=== PATIENT | male | born 1990 | race Caucasian/White ===

== ENCOUNTER → 2016-09-18 | Outpatient (REF) | payer OTHER ==
[2016-09-18 16:43] LABS: BASO % 0.4 % (0.0-1.0); EOS # 0.2 K/mm3 (0.0-0.50); EOS % 4.3 % (0.0-3.0); LARGE UNSTAINED CELL # 0.1 K/mm3 (0.0-0.4); LARGE UNSTAINED CELL % 1.8 % (0.0-4.0); LYMPH % 40.1 % (24.0-44.0); MEAN CORPUSCULAR HEMOGLOBIN 33.2 pg (27.0-33.0); MEAN CORPUSCULAR HGB CONC 34.5 g/dl (32.0-36.5); MEAN CORPUSCULAR VOLUME 96.2 fl (80.0-96.0); MONO # 0.4 K/mm3 (0.0-0.8); MONO % 8.5 % (0.0-5.0); NEUTROPHILS # 2.2 K/mm3 (1.8-7.7); PLATELET COUNT, AUTOMATED 127 k/mm3 (150-450); WHITE BLOOD COUNT 4.9 K/mm3 (4.0-10.0)
[2016-09-18 17:46] LABS: ALBUMIN 4.3 GM/DL (3.2-5.2); ALBUMIN/GLOBULIN RATIO 1.23 (1.00-1.93); ALKALINE PHOSPHATASE 101 U/L (45-117); ALT/SGPT 111 U/L (12-78); ANION GAP 6 MEQ/L (8-16); AST/SGOT 37 U/L (15-37); BILIRUBIN,TOTAL 0.3 MG/DL (0.2-1.0); BLOOD UREA NITROGEN 14 MG/DL (7-18); CALCIUM LEVEL 9.7 MG/DL (8.5-10.1); CARBON DIOXIDE LEVEL 28 MEQ/L (21-32); CHLORIDE LEVEL 103 MEQ/L (98-107); CHOLESTEROL LEVEL 206 MG/DL (<200); CREATININE FOR GFR 1.12 MG/DL (0.70-1.30); FREE T4 1.09 NG/DL (0.76-1.46); GLOMERULAR FILTRATION RATE > 60.0 (>60); GLUCOSE, FASTING 94 MG/DL (70-105); POTASSIUM SERUM 4.3 MEQ/L (3.5-5.1); SODIUM LEVEL 137 MEQ/L (136-145); TOTAL PROTEIN 7.8 GM/DL (6.4-8.2); TRIGLYCERIDES LEVEL 162 MG/DL (<150)
[2016-09-18 18:07] LABS: ERYTHROCYTE SEDIMENTATION RATE 3 mm/hr (0-15)
== END ==
LOC: M SFHCPLAZ 13:20
PROVIDERS: ATTEND Family Medicine
DX: I10 Essential (primary) hypertension (principal); R79.89 Other specified abnormal findings of blood chemistry; M32.9 Systemic lupus erythematosus, unspecified; E78.5 Hyperlipidemia, unspecified

== ENCOUNTER → 2017-01-23 | Outpatient (REF) | payer OTHER ==
[2017-01-23 17:50] LABS: THYROID PEROXIDASE ANTIBODY < 28.0 U/ML (<60.0)
[2017-01-23 17:53] LABS: ALBUMIN 4.4 GM/DL (3.2-5.2); ALBUMIN/GLOBULIN RATIO 1.13 (1.00-1.93); ALKALINE PHOSPHATASE 110 U/L (45-117); ALT/SGPT 150 U/L (12-78); ANION GAP 10 MEQ/L (8-16); AST/SGOT 59 U/L (15-37); BILIRUBIN,TOTAL 0.5 MG/DL (0.2-1.0); BLOOD UREA NITROGEN 17 MG/DL (7-18); CALCIUM LEVEL 8.8 MG/DL (8.5-10.1); CARBON DIOXIDE LEVEL 24 MEQ/L (21-32); CHLORIDE LEVEL 108 MEQ/L (98-107); CHOLESTEROL LEVEL 218 MG/DL (<200); FREE T4 1.17 NG/DL (0.76-1.46); GLOMERULAR FILTRATION RATE > 60.0 (>60); GLUCOSE, FASTING 80 MG/DL (70-105); POTASSIUM SERUM 4.3 MEQ/L (3.5-5.1); SODIUM LEVEL 142 MEQ/L (136-145); TOTAL PROTEIN 8.3 GM/DL (6.4-8.2); TRIGLYCERIDES LEVEL 131 MG/DL (<150)
[2017-01-23 18:26] LABS: RED CELL DISTRIBUTION WIDTH 12.5 % (11.5-14.5); WHITE BLOOD COUNT 6.3 K/mm3 (4.0-10.0)
[2017-01-23 18:30] LABS: MEAN CORPUSCULAR HEMOGLOBIN 35.3 pg (27.0-33.0); MEAN CORPUSCULAR VOLUME 96.4 fl (80.0-96.0)
[2017-01-23 18:31] LABS: MEAN CORPUSCULAR HGB CONC 36.6 g/dl (32.0-36.5)
[2017-01-23 18:51] LABS: ERYTHROCYTE SEDIMENTATION RATE 5 mm/hr (0-15)
[2017-01-23 19:38] LABS: BANDS 4 % (< 11); EOSINOPHILS 2 % (0-5)
== END ==
LOC: M SFHCPLAZ 15:24
PROVIDERS: ATTEND Family Medicine
DX: D72.819 Decreased white blood cell count, unspecified (principal); I10 Essential (primary) hypertension; M32.9 Systemic lupus erythematosus, unspecified; E78.5 Hyperlipidemia, unspecified

== ENCOUNTER → 2017-01-29 | Outpatient (CLI) | payer OTHER ==
--- NOTE | 2017-01-29 08:54 | REP ---
RIGHT UPPER QUADRANT ULTRASOUND: Real-time sonographic evaluation of right upper quadrant performed. The gallbladder demonstrates no evidence of intraluminal sludge or calculi, wall thickening, or pericholecystic fluid. There is no intrahepatic or extrahepatic biliary dilatation, common bile duct measuring 4 mm in diameter. There is a small cyst in the right lobe of the liver 6 mm in diameter. Visualized pancreas is grossly unremarkable but not well seen due to overlying bowel gas. Right kidney demonstrates no hydronephrosis or nephrolithiasis with normal size at 10.6 cm in length. IMPRESSION: Essentially negative right upper quadrant ultrasound. Subcentimeter cyst in the right lobe of the liver. Signed by Donavan Cardoza MD 01/29/2017 09:04 A
== END ==
LOC: M RAD 07:20
PROVIDERS: ATTEND Family Medicine
DX: R05 Cough (principal)

== ENCOUNTER → 2017-02-19 | Outpatient (CLI) | payer OTHER ==
--- NOTE | 2017-02-19 10:43 | REP ---
Chest x-ray: Two views. History: Moderate persistent asthma. . Comparison study: January 01, 2015 . Findings: The lungs are well inflated and free of infiltrate. The pleural angles are sharp. The heart size is normal. Pulmonary vasculature is not increased. No significant bony abnormality is seen. Impression: Negative chest x-ray. Signed by Saurav Pelaez MD 02/19/2017 10:33 A
== END ==
LOC: M SMT 09:50
PROVIDERS: ATTEND Internal Medicine Pulmonary Disease
DX: J45.40 Moderate persistent asthma, uncomplicated (principal)

== ENCOUNTER → 2017-04-24 | Outpatient (REF) | payer OTHER ==
[2017-04-24 15:57] LABS: BASO % 0.4 % (0.0-1.0); EOS # 0.2 10^3/uL (0.0-0.50); EOS % 3.5 % (0.0-3.0); IMMATURE GRANULOCYTE % 0.2 % (0-0); LYMPH # 1.9 10^3/uL (1.5-6.5); LYMPH % 40.1 % (24.0-44.0); MEAN CORPUSCULAR HEMOGLOBIN 33.3 pg (27.0-33.0); MEAN CORPUSCULAR VOLUME 95.1 fl (80.0-96.0); MONO # 0.3 10^3/uL (0.0-0.8); MONO % 7.2 % (0.0-5.0); NEUTROPHILS # 2.2 10^3/uL (1.8-7.7); NEUTROPHILS % 48.6 % (36.0-66.0); PLATELET COUNT, AUTOMATED 142 10^3/uL (150-450); RED CELL DISTRIBUTION WIDTH 12.1 % (11.5-14.5); WHITE BLOOD COUNT 4.6 10^3/uL (4.0-10.0)
[2017-04-24 16:13] LABS: INR 1.03
[2017-04-24 16:14] LABS: ALBUMIN 4.2 GM/DL (3.2-5.2); ALKALINE PHOSPHATASE 86 U/L (45-117); ALT/SGPT 103 U/L (12-78); ANION GAP 7 MEQ/L (8-16); AST/SGOT 35 U/L (7-37); BILIRUBIN,TOTAL 0.4 MG/DL (0.2-1.0); BLOOD UREA NITROGEN 14 MG/DL (7-18); CALCIUM LEVEL 9.2 MG/DL (8.5-10.1); CARBON DIOXIDE LEVEL 28 MEQ/L (21-32); CHLORIDE LEVEL 103 MEQ/L (98-107); CHOLESTEROL LEVEL 197 MG/DL (<200); CREATININE FOR GFR 1.18 MG/DL (0.70-1.30); GLOMERULAR FILTRATION RATE > 60.0 (>60); GLUCOSE, FASTING 82 MG/DL (70-105); POTASSIUM SERUM 4.2 MEQ/L (3.5-5.1); SODIUM LEVEL 138 MEQ/L (136-145); TOTAL PROTEIN 7.7 GM/DL (6.4-8.2); TRIGLYCERIDES LEVEL 115 MG/DL (<150)
[2017-04-24 16:36] LABS: VITAMIN B12 LEVEL 591 PG/ML (247-911)
[2017-04-28 11:02] LABS: PRETREATED FOLATE FOR RBCFOL 9.9 NG/ML
[2017-04-28 13:47] LABS: ALBUMIN 4.56 GM/DL (3.29-5.55); ALBUMIN % 59.2 % (55.8-66.1); GAMMA GLOBULIN % 15.8 % (11.1-18.8)
== END ==
LOC: M SFHCPLAZ 12:49
PROVIDERS: ATTEND Family Medicine
DX: D75.89 Other specified diseases of blood and blood-forming organs (principal); E78.5 Hyperlipidemia, unspecified

== ENCOUNTER → 2017-12-22 | Outpatient (REF) | payer OTHER ==
[2017-12-22 15:41] LABS: BASO % 0.2 % (0.0-1.0); EOS % 0.2 % (0.0-3.0); HEMATOCRIT 43.9 % (42.0-52.0); HEMOGLOBIN 15.7 g/dl (13.5-17.5); IMMATURE GRANULOCYTE % 0.6 % (0-3.0); LYMPH # 1.3 10^3/uL (1.5-6.5); LYMPH % 25.9 % (24.0-44.0); MEAN CORPUSCULAR HEMOGLOBIN 33.7 pg (27.0-33.0); MEAN CORPUSCULAR HGB CONC 35.8 g/dl (32.0-36.5); MEAN CORPUSCULAR VOLUME 94.2 fl (80.0-96.0); MONO # 0.3 10^3/uL (0.0-0.8); MONO % 6.4 % (0.0-5.0); NEUTROPHILS # 3.4 10^3/uL (1.8-7.7); NEUTROPHILS % 66.7 % (36.0-66.0); PLATELET COUNT, AUTOMATED 140 10^3/uL (150-450); RED BLOOD COUNT 4.66 10^6/uL (4.30-6.10); RED CELL DISTRIBUTION WIDTH 12.6 % (11.5-14.5); WHITE BLOOD COUNT 5.1 10^3/uL (4.0-10.0)
[2017-12-22 15:52] LABS: ALBUMIN/GLOBULIN RATIO 1.14 (1.00-1.93); ALKALINE PHOSPHATASE 80 U/L (45-117); ALT/SGPT 40 U/L (12-78); ANION GAP 7 MEQ/L (8-16); AST/SGOT 14 U/L (7-37); BILIRUBIN,TOTAL 0.5 MG/DL (0.2-1.0); BLOOD UREA NITROGEN 13 MG/DL (7-18); C REACTIVE PROTEIN QUANTITATIV < 0.30 MG/DL (0.00-0.30); CALCIUM LEVEL 8.9 MG/DL (8.5-10.1); CARBON DIOXIDE LEVEL 24 MEQ/L (21-32); CHLORIDE LEVEL 110 MEQ/L (98-107); CHOLESTEROL LEVEL 170 MG/DL (<200); CHOLESTEROL RISK RATIO 3.953 (<5); CPK CREATINE PHOSPHOKINASE 55 U/L (39-308); CREATININE FOR GFR 0.88 MG/DL (0.70-1.30); GLOMERULAR FILTRATION RATE > 60.0 (>60); GLUCOSE, FASTING 80 MG/DL (70-100); HDL CHOLESTEROL 43 MG/DL (>40); LDL CHOLESTEROL 113.4 MG/DL (<100); NON-HDL-C 127 MG/DL; POTASSIUM SERUM 3.9 MEQ/L (3.5-5.1); SODIUM LEVEL 141 MEQ/L (136-145); TOTAL PROTEIN 7.5 GM/DL (6.4-8.2); TRIGLYCERIDES LEVEL 68 MG/DL (<150)
[2017-12-22 15:56] LABS: ESTIMATED AVERAGE GLUCOSE 105 MG/DL (60-110); HEMOGLOBIN A1c 5.3 %
[2017-12-22 15:58] LABS: ALPHA FETOPROTEIN TUMOR QUANT 1.5 NG/ML (<8.1); PTH INTACT 34.7 PG/ML (18.5-88.0); TOTAL 25(OH) VITAMIN D 30.2 NG/ML (30.0-100.0)
[2017-12-25 00:37] LABS: ANA (HEP2) Positive (.); SSA SJOGRENS A 0.2 AI (0.0-0.9); SSB SJOGRENS B <0.2 AI (0.0-0.9)
[2017-12-25 00:37] LABS: INSULIN LEVEL 14.2 uIU/mL (2.6-24.9)
== END ==
LOC: M SFHCPLAZ 12:26
DX: K70.9 Alcoholic liver disease, unspecified (principal); D75.89 Other specified diseases of blood and blood-forming organs; E78.5 Hyperlipidemia, unspecified; E55.9 Vitamin D deficiency, unspecified; M32.9 Systemic lupus erythematosus, unspecified; K21.9 Gastro-esophageal reflux disease without esophagitis

== ENCOUNTER → 2018-02-15 | Outpatient (REF) | payer OTHER ==
[2018-02-15 20:15] LABS: BASO % 0.4 % (0.0-1.0); EOS # 0.1 10^3/uL (0.0-0.50); EOS % 1.1 % (0.0-3.0); HEMATOCRIT 48.2 % (42.0-52.0); HEMOGLOBIN 17.5 g/dl (13.5-17.5); IMMATURE GRANULOCYTE % 0.2 % (0-3.0); LYMPH # 1.9 10^3/uL (1.5-6.5); LYMPH % 35.9 % (24.0-44.0); MEAN CORPUSCULAR HEMOGLOBIN 34.2 pg (27.0-33.0); MEAN CORPUSCULAR HGB CONC 36.3 g/dl (32.0-36.5); MEAN CORPUSCULAR VOLUME 94.3 fl (80.0-96.0); MONO # 0.6 10^3/uL (0.0-0.8); MONO % 10.8 % (0.0-5.0); NEUTROPHILS # 2.7 10^3/uL (1.8-7.7); NEUTROPHILS % 51.6 % (36.0-66.0); PLATELET COUNT, AUTOMATED 147 10^3/uL (150-450); RED BLOOD COUNT 5.11 10^6/uL (4.30-6.10); RED CELL DISTRIBUTION WIDTH 11.9 % (11.5-14.5); WHITE BLOOD COUNT 5.3 10^3/uL (4.0-10.0)
[2018-02-15 20:25] LABS: APPEARANCE, URINE CLOUDY (CLEAR); BACTERIA, URINE AUTO NEGATIVE (NEGATIVE); BILIRUBIN, URINE AUTO NEGATIVE (NEGATIVE); BLOOD, URINE BLOOD NEGATIVE (NEGATIVE); CALCIUM OXALATE CRYSTALS MODERATE; COLOR, URINE YELLOW (YELLOW); GLUCOSE, URINE (UA) AUTO NEGATIVE (NEGATIVE); KETONE, URINE AUTO NEGATIVE (NEGATIVE); LEUKOCYTE ESTERASE, URINE AUTO NEGATIVE (NEGATIVE); MUCUS, URINE LARGE (NEGATIVE); NITRITE, URINE AUTO NEGATIVE (NEGATIVE); PROTEIN, URINE AUTO NEGATIVE (NEGATIVE); RBC, URINE AUTO 31 /HPF (0-3); SPECIFIC GRAVITY URINE AUTO 1.021 (1.002-1.035); SQUAMOUS EPITHELIAL CELL UR AU 0 /HPF (0-6); UROBILINOGEN, URINE AUTO 0.2 mg/dL (0.0-2.0); WBC, URINE AUTO 1 /HPF (0-3)
[2018-02-15 23:31] LABS: ALBUMIN 4.3 GM/DL (3.2-5.2); ALKALINE PHOSPHATASE 99 U/L (45-117); ALT/SGPT 50 U/L (12-78); ANION GAP 9 MEQ/L (8-16); AST/SGOT 23 U/L (7-37); BILIRUBIN,TOTAL 0.5 MG/DL (0.2-1.0); BLOOD UREA NITROGEN 19 MG/DL (7-18); CALCIUM LEVEL 9.3 MG/DL (8.5-10.1); CARBON DIOXIDE LEVEL 25 MEQ/L (21-32); CHLORIDE LEVEL 103 MEQ/L (98-107); CREATININE FOR GFR 1.02 MG/DL (0.70-1.30); GLOMERULAR FILTRATION RATE > 60.0 (>60); GLUCOSE, FASTING 94 MG/DL (70-100); POTASSIUM SERUM 3.4 MEQ/L (3.5-5.1); SODIUM LEVEL 137 MEQ/L (136-145); TOTAL PROTEIN 7.8 GM/DL (6.4-8.2)
[2018-02-15 23:36] LABS: ALBUMIN/GLOBULIN RATIO 1.23 (1.00-1.93)
[2018-02-16 13:38] LABS: HEPATITIS B SURFACE ANTIBODY R (POSITIVE); HEPATITIS B SURFACE ANTIGEN NEGATIVE (NEGATIVE)
[2018-02-16 16:27] LABS: HEPATITIS C VIRUS ABY INDEX 0.2 INDEX (<0.8)
[2018-02-16 17:41] LABS: HEPATITIS B CORE ANTIBODY IGM NEGATIVE (NEGATIVE)
[2018-02-17 19:37] LABS: HIV 1&2 SCREEN CENTAUR NEGATIVE (NEGATIVE)
[2018-02-18 00:07] LABS: G6PD2 4.99 x10E6/uL (4.14-5.80); G6PD3 292 (146-376)
[2018-02-18 08:10] LABS: QUANTIFERON GOLD TB Negative (Negative); TB Test (QFT) Antigen 0.03 IU/mL (.); TB Test (QFT) Antigen Minus Ni <0.01 IU/mL (.); TB Test (QFT) Mitogen 8.08 IU/mL (.); TB Test (QFT) Nil 0.05 IU/mL (.)
== END ==
LOC: M SFHCLERA 18:13
DX: L93.0 Discoid lupus erythematosus (principal)
CPT/HCPCS: 80053

== ENCOUNTER → 2018-03-24 | Outpatient (REF) | payer OTHER ==
[2018-03-24 20:25] LABS: APPEARANCE, URINE HAZY (CLEAR); BACTERIA, URINE AUTO NEGATIVE (NEGATIVE); BILIRUBIN, URINE AUTO 1+ (NEGATIVE); BLOOD, URINE BLOOD NEGATIVE (NEGATIVE); CALCIUM OXALATE CRYSTALS MODERATE; COLOR, URINE AMBER (YELLOW); GLUCOSE, URINE (UA) AUTO NEGATIVE (NEGATIVE); KETONE, URINE AUTO TRACE mg/dL (NEGATIVE); LEUKOCYTE ESTERASE, URINE AUTO NEGATIVE (NEGATIVE); MUCUS, URINE SMALL (NEGATIVE); NITRITE, URINE AUTO NEGATIVE (NEGATIVE); PROTEIN, URINE AUTO 1+ mg/dL (NEGATIVE); RBC, URINE AUTO 1 /HPF (0-3); SPECIFIC GRAVITY URINE AUTO 1.027 (1.002-1.035); SQUAMOUS EPITHELIAL CELL UR AU 0 /HPF (0-6); WBC, URINE AUTO 0 /HPF (0-3)
== END ==
LOC: M SFHCLERA 17:38
DX: L93.0 Discoid lupus erythematosus (principal)
CPT/HCPCS: 81001

== ENCOUNTER → 2018-08-24 | Outpatient (CLI) | payer OTHER ==
--- NOTE | 2018-08-25 04:56 | REP ---
Clinical: Alcoholic liver disease. Comparison: 01/29/2017 Technique: Cardoza scale ultrasound using curved array transducer. Findings: The liver is echogenic consistent with fatty infiltration. No significant focal hepatic lesion identified. Incidental hepatic cyst measures 7 mm in the right lobe. The gallbladder is normal without gallstones, wall thickening or pericholecystic fluid. No biliary ductal dilatation is appreciated, and the common bile duct measures 3.7 mm diameter. The right kidney is normal in reniform shape without hydronephrosis and measures 11.0 x 5.6 x 4.5 cm with suggestions for partial duplication. No ascites. Visualized portions of the abdominal aorta normal. Impression: Hepatic steatosis. Subcentimeter hepatic cyst. Electronically Signed by Mat Colon MD 08/25/2018 04:48 A
== END ==
LOC: M RAD 08:01
PROVIDERS: ATTEND Family Medicine
DX: K70.9 Alcoholic liver disease, unspecified (principal)

== ENCOUNTER → 2019-01-08 | Outpatient (CLI) | payer OTHER ==
[2019-01-08 17:02] LABS: BLOOD UREA NITROGEN 13 MG/DL (7-18); CALCIUM LEVEL 9.1 MG/DL (8.5-10.1); CARBON DIOXIDE LEVEL 27 MEQ/L (21-32); CHLORIDE LEVEL 106 MEQ/L (98-107); GLOMERULAR FILTRATION RATE > 60.0 (>60); GLUCOSE, FASTING 99 MG/DL (70-100); POTASSIUM SERUM 4.3 MEQ/L (3.5-5.1); SODIUM LEVEL 139 MEQ/L (136-145)
[2019-01-08 17:09] LABS: BASO % 0.3 % (0.0-1.0); EOS # 0.2 10^3/uL (0.0-0.50); HEMOGLOBIN 18.1 g/dl (13.5-17.5); LYMPH # 1.4 10^3/uL (1.5-6.5); LYMPH % 20.5 % (24.0-44.0); MEAN CORPUSCULAR HEMOGLOBIN 33.2 pg (27.0-33.0); MEAN CORPUSCULAR HGB CONC 34.8 g/dl (32.0-36.5); MEAN CORPUSCULAR VOLUME 95.2 fl (80.0-96.0); MONO # 0.5 10^3/uL (0.0-0.8); MONO % 7.4 % (0.0-5.0); NEUTROPHILS # 4.7 10^3/uL (1.8-7.7); NEUTROPHILS % 68.7 % (36.0-66.0); PLATELET COUNT, AUTOMATED 138 10^3/uL (150-450); RED BLOOD COUNT 5.46 10^6/uL (4.30-6.10); WHITE BLOOD COUNT 6.8 10^3/uL (4.0-10.0)
[2019-01-08 20:06] LABS: CHLAMYDIA DNA AMPLIFICATION NEGATIVE (NEGATIVE); GC DNA AMPLIFICATION NEGATIVE (NEGATIVE)
[2019-01-10 12:04] LABS: HEPATITIS C VIRUS ABY INDEX 0.1 INDEX (<0.8)
[2019-01-10 12:05] LABS: HIV 1&2 SCREEN CENTAUR NEGATIVE (NEGATIVE)
== END ==
LOC: M WUC 13:21
PROVIDERS: ATTEND Nurse Practitioner Family
DX: N50.812 Left testicular pain (principal); Z11.3 Encounter for screening for infections with a predominantly sexual mode of transmission

== ENCOUNTER → 2019-01-14 | Outpatient (REF) | payer OTHER ==
[2019-01-14 13:00] LABS: INR 1.05; PROTHROMBIN TIME 13.4 SECONDS (11.8-14.0)
[2019-01-14 13:01] LABS: ALBUMIN 4.5 GM/DL (3.2-5.2); ALT/SGPT 32 U/L (12-78); BILIRUBIN,TOTAL 0.5 MG/DL (0.2-1.0); BLOOD UREA NITROGEN 14 MG/DL (7-18); CALCIUM LEVEL 9.4 MG/DL (8.5-10.1); CARBON DIOXIDE LEVEL 28 MEQ/L (21-32); CHLORIDE LEVEL 107 MEQ/L (98-107); CHOLESTEROL LEVEL 180 MG/DL (<200); COMPLEMENT C3 110 MG/DL (90-180); COMPLEMENT C4 28 MG/DL (10-40); CREATININE FOR GFR 1.15 MG/DL (0.70-1.30); FREE T4 1.16 NG/DL (0.76-1.46); GLOMERULAR FILTRATION RATE > 60.0 (>60); GLUCOSE, FASTING 96 MG/DL (70-100); HDL CHOLESTEROL 36 MG/DL (>40); LDL CHOLESTEROL 125 MG/DL (<100); MAGNESIUM LEVEL 2.2 MG/DL (1.8-2.4); NON-HDL-C 144 MG/DL; PARTIAL THROMBOPLASTIN TIME 35.4 SECONDS (25.0-38.4); POTASSIUM SERUM 4.2 MEQ/L (3.5-5.1); SODIUM LEVEL 139 MEQ/L (136-145); TOTAL PROTEIN 7.7 GM/DL (6.4-8.2); TRIGLYCERIDES LEVEL 97 MG/DL (<150)
[2019-01-14 13:19] LABS: TOTAL 25(OH) VITAMIN D 27.9 NG/ML (30.0-100.0); TOTAL PROTEIN,RANDOM URINE 103.8 MG/DL (0.0-12.0)
[2019-01-18 10:12] LABS: DRVV SCREEN 49.7 SEC
[2019-01-18 10:15] LABS: PTT LUPUS TYPE ANTICOAG SCREEN 1.2 (0-1.2)
[2019-01-18 10:23] LABS: DRVV CONFIRM 42.8 SEC; LUPUS CONFIRM RATIO 1.1
[2019-01-18 10:35] LABS: NORMALIZED RATIO 1.09 (0.00-1.20)
[2019-01-20 00:08] LABS: ANTI DS-DNA AB <1:10 titer (.); ANTINUCLEAR ANTIBODIES DIRECT Negative (Negative); INSULIN LEVEL 9.3 uIU/mL (2.6-24.9)
== END ==
LOC: M SFHCPLAZ 09:34
PROVIDERS: ATTEND Physician Assistant Medical
DX: M32.9 Systemic lupus erythematosus, unspecified (principal); I10 Essential (primary) hypertension; E78.5 Hyperlipidemia, unspecified; E66.9 Obesity, unspecified; E55.9 Vitamin D deficiency, unspecified

== ENCOUNTER → 2019-05-12 | Outpatient (CLI) | payer OTHER ==
--- NOTE | 2019-05-12 14:41 | REPPI ---
Clinical: Constipation. Technique: Two supine views of the abdomen and pelvis. Findings: Bowel gas pattern is nonspecific. No organomegaly. No abnormal calcifications. No foreign body. Skeletal structures intact. Impression: Normal abdominal radiographs Electronically Signed by Mat Colon MD 05/12/2019 02:33 P
[2019-05-12 17:26] LABS: BASO % 0.2 % (0.0-1.0); HEMATOCRIT 51.4 % (42.0-52.0); HEMOGLOBIN 17.3 g/dl (13.5-17.5); LYMPH # 1.6 10^3/uL (1.5-5.0); LYMPH % 40.2 % (24.0-44.0); MEAN CORPUSCULAR HEMOGLOBIN 32.2 pg (27.0-33.0); MEAN CORPUSCULAR HGB CONC 33.7 g/dl (32.0-36.5); MEAN CORPUSCULAR VOLUME 95.7 fl (80.0-96.0); MONO # 0.5 10^3/uL (0.0-0.8); MONO % 11.4 % (0.0-5.0); NEUTROPHILS # 1.9 10^3/uL (1.5-8.5); PLATELET COUNT, AUTOMATED 149 10^3/uL (150-450); RED BLOOD COUNT 5.37 10^6/uL (4.30-6.10); WHITE BLOOD COUNT 4.1 10^3/uL (4.0-10.0)
[2019-05-12 17:36] LABS: ALBUMIN 4.7 GM/DL (3.2-5.2); ALT/SGPT 31 U/L (12-78); BILIRUBIN,TOTAL 0.5 MG/DL (0.2-1.0); BLOOD UREA NITROGEN 11 MG/DL (7-18); C REACTIVE PROTEIN QUANTITATIV < 0.30 MG/DL (0.00-0.30); CALCIUM LEVEL 9.8 MG/DL (8.5-10.1); CARBON DIOXIDE LEVEL 31 MEQ/L (21-32); CHLORIDE LEVEL 104 MEQ/L (98-107); COMPLEMENT C3 131 MG/DL (90-180); COMPLEMENT C4 31 MG/DL (10-40); CREATININE FOR GFR 1.07 MG/DL (0.70-1.30); GLOMERULAR FILTRATION RATE > 60.0 (>60); GLUCOSE, FASTING 92 MG/DL (70-100); SODIUM LEVEL 137 MEQ/L (136-145); TOTAL PROTEIN 8.4 GM/DL (6.4-8.2)
[2019-05-12 17:50] LABS: TOTAL PROTEIN,RANDOM URINE 18.9 MG/DL (0.0-12.0)
[2019-05-12 18:07] LABS: HEMOGLOBIN A1c 5.6 %
[2019-05-13 15:32] LABS: APPEARANCE, URINE HAZY (CLEAR); BACTERIA, URINE AUTO NEGATIVE (NEGATIVE); BILIRUBIN, URINE AUTO NEGATIVE (NEGATIVE); BLOOD, URINE BLOOD 1+ (NEGATIVE); COLOR, URINE YELLOW (YELLOW); GLUCOSE, URINE (UA) AUTO NEGATIVE (NEGATIVE); KETONE, URINE AUTO NEGATIVE (NEGATIVE); LEUKOCYTE ESTERASE, URINE AUTO NEGATIVE (NEGATIVE); MUCUS, URINE SMALL (NEGATIVE); NITRITE, URINE AUTO NEGATIVE (NEGATIVE); PROTEIN, URINE AUTO NEGATIVE (NEGATIVE); RBC, URINE AUTO 0 /HPF (0-3); SPECIFIC GRAVITY URINE AUTO 1.011 (1.002-1.035); SQUAMOUS EPITHELIAL CELL UR AU 0 /HPF (0-6); UROBILINOGEN, URINE AUTO 0.2 mg/dL (0.0-2.0); WBC, URINE AUTO 0 /HPF (0-3)
== END ==
LOC: M PLAIMG 13:37
PROVIDERS: ATTEND Family Medicine
DX: M32.9 Systemic lupus erythematosus, unspecified (principal); K59.00 Constipation, unspecified

== ENCOUNTER 2019-06-10 04:01 | Inpatient (IN) | payer OTHER ==
[~2019-06-10] VITALS: Ht 175.3 cm; Wt 89.6 kg
[2019-06-10] MEDS ORDERED: CHLO25TA PO (05:53)
[2019-06-10] MEDS ORDERED: PROT0.1O EXT (05:53)
[2019-06-10] MEDS ORDERED: ASPI81TA21 PO (05:53)
[2019-06-10] MEDS ORDERED: ADV500INH INH (05:53)
[2019-06-10] MEDS ORDERED: HYDR200T3 PO (05:53)
[2019-06-10] MEDS ORDERED: KETO2SHA9 TOP (05:53)
[2019-06-10] MEDS ORDERED: VENTAER INH (05:53)
[2019-06-10] MEDS ORDERED: FLUOCRE EXT (05:53)
[2019-06-10] MEDS ORDERED: ZETI10TA16 PO (05:53)
[2019-06-10] MEDS ORDERED: BACITAB PO (05:53)
[2019-06-10] MEDS ORDERED: HYDR-3363 PO (05:53)
[2019-06-10] MEDS ORDERED: MAALOX 30 ML SUSP *UDC PO PRN (12:30)
[2019-06-10] MEDS ORDERED: MOM 30ML SUSPENSION UDC PO PRN (12:30)
[2019-06-10] MEDS ORDERED: ACETAMINOPHEN TAB 650MG DOSE (2X325MG) PO PRN (12:30)
[2019-06-10] MEDS ORDERED: hydrOXYzine 25 MG TAB PO PRN (17:00)
[2019-06-10] MEDS: NICOTINE 21MG/24HR 1 EA TRANSDERMAL TD SCH (17:03)
[2019-06-10] MEDS: OLANZapine ORAL DISINTEGRATING TAB 5MG PO PRN (17:14)
[2019-06-10 18:00] VITALS: BP 139/92
[2019-06-11 06:39] VITALS: BP 137/90
[2019-06-11] MEDS: OLANZapine ORAL DISINTEGRATING TAB 5MG PO PRN ×2 (08:28→15:19)
[2019-06-11] MEDS: NICOTINE 21MG/24HR 1 EA TRANSDERMAL TD SCH (08:28)
[2019-06-11 15:51] VITALS: BP 139/96
[2019-06-11] MEDS: clonazePAM 0.5 MG TAB PO SCH ×2 (17:21→20:46)
[2019-06-11] MEDS: traZODone 50 MG TAB PO PRN (20:11)
[2019-06-11] MEDS: SERTRALINE 100 MG TAB PO SCH (20:11)
[2019-06-11] MEDS: OLANZapine ORAL DISINTEGRATING TAB 5MG PO SCH (20:46)
--- NOTE | 2019-06-11 22:21 | MHHPE ---
DATE OF ADMISSION: 06/10/2019 HISTORY OF PRESENT ILLNESS: This is a 29-year-old white man who is hospitalized for the first time. He came to the hospital from [facility] [place], as he had voiced suicidal ideations. This patient states that over the past few years, he has increasingly become more and more fearful that something terrible is going to happen to him. He is particularly afraid of . He states that, for example, if he has the flu, he starts thinking the worse. If he has constipation, he thinks he has colon cancer. If he sees something online stating that this is the beginning of possible lung cancer, then he starts worrying that he might have cancer. He states that more and more he has isolated and the only place where he feels safe is in his own bedroom, and only if it is just his family, his parents and his fiance, that are in the house. He states that he is afraid that he is going to do something impulsive to kill himself. He says that there are moments that he gets so afraid, and he goes into a panic episode. He says that recently he is so afraid of taking a shower, because he had a panic attack while he was showering once. He states, "I could be fine one minute and then my brain triggers anxiety, and I get a cold sensation in my back, my stomach hurts," and then he goes into a panic with palpitations and shortness of breath. He says that before this started, he used to like to go to a lot of places and do a lot of things, so this has not always been a problem for him. His primary care provider has been treating him with Zoloft 50 mg once a day for the past year. It has not really been too effective. Patient is also feeling very depressed, feeling hopeless and helpless. The patient states that his fears are now getting to the point where he is beginning to feel that he cannot trust any doctors. The patient states that lately he has developed nausea almost every day, and so he is having more and more problems with eating. He says when he has a panic attack, he will have dry heaves. He says he has been losing weight. The patient has never had any prior psychiatric treatment since he started to have problems with these fears about his health. He did have some very brief treatment as a child back in 2006, and I did review a note from Dr. Liu, a child psychiatrist, at [facility], but mostly it says that he was having a lot of anxiety at the time due to a lot of problems that he was having in school. It mentions that he had attention deficit hyperactivity disorder and apparently had a trial of Ritalin, but apparently he had side effects from it, and so it appears that Dr. Liu did not prescribe any medication for him, even though he had diagnosis of attention deficit hyperactivity disorder (ADHD). PAST PSYCHIATRIC HISTORY: The patient has never made any suicidal attempts, and this is his first hospitalization. FAMILY HISTORY: He says that everyone in his family has a lot of problems with depression and anxiety. ABUSE HISTORY: Denies any history of any physical or sexual abuse. SUBSTANCE ABUSE HISTORY: He denies any problems with alcohol or drugs. He does say that recently he had tried some pot to see if it helped him to relax, and with his lupus he says that the more anxious that he is, the worse his lupus gets. There is no history of any problems with alcohol or drugs. MEDICAL HISTORY: The patient has gastroesophageal reflux disease (GERD). REVIEW OF SYSTEMS: VITAL SIGNS: Blood pressure 137/90, pulse 83, respirations 18. APPEARANCE: Hs is extremely anxious. NEUROMUSCULAR SYSTEM: The patient's gait is normal, and there are no involuntary movements noted. All other systems were reviewed and found to be negative. MENTAL STATUS EXAMINATION: This patient is alert and oriented times three. Eye contact is fair. Psychomotor activity is increased due to anxiety. He is verbally spontaneous. There is no formal thought disorder noted. His mood is anxious and depressed. His affect is full range and appropriate. He is not suicidal or homicidal today. He admits that he has been afraid that he would act on suicidal thoughts that he has had prior to admission if he goes into a panic attack. The patient is not having any hallucinations. There are no actual delusions; however, it is possible that some of his thoughts or fears about being ill or getting ill or somebody hurting him, that these may be close to becoming some paranoid delusions. Concentration is fair. Memory is intact. Insight and judgment poor. DIAGNOSES: 1. Major depressive disorder, recurrent, severe without psychotic symptoms. 2. Generalized anxiety disorder. 3. Panic disorder. 4. Rule out Illness anxiety disorder. PLAN: At this point, patient has expressed some anxiety and fears that he has or will become seriously ill. The patient is already on Zoloft, but I will increase the dose to 100 mg at bedtime. I will start him on Klonopin 0.5 mg twice a day. He has taken Zyprexa 5 mg as needed that I had ordered for him, and he feels that has really been helping his anxiety, and so we will schedule it so he can take 5 mg at bedtime. He feels that this helps him settle down. We will further titrate medication as indicated, and when stable we will discharge with appropriate followup. RENETTA
[2019-06-12 06:37] VITALS: BP 140/94
[2019-06-12] MEDS: clonazePAM 0.5 MG TAB PO SCH ×3 (08:44→20:37)
[2019-06-12] MEDS: NICOTINE 21MG/24HR 1 EA TRANSDERMAL TD SCH (08:44)
--- NOTE | 2019-06-12 12:19 | CR.PDOC ---
General Date of Consultation: Jun 12, 2019 Consultation REASON FOR CONSULTATION/CHIEF COMPLAINT: Physical evaluation HISTORY OF PRESENT ILLNESS: Patient is 29 years old male with past medical history of lupus, hypertension, anxiety presented to the hospital after he developed suicidal ideation. Patient denied fever, chills, chest pain, palpitations nausea, vomiting, diarrhea or dysuria ALLERGIES: Please see below. HOME MEDICATIONS: Please see below. PAST MEDICAL HISTORY: Lupus, hypertension, hyperlipidemia PAST SURGICAL HISTORY: None FAMILY HISTORY: Father: Depression Mother: Anxiety, depression, hypertension, stroke Ant: Lupus SOCIAL HISTORY: Tobacco use: One pack a day ETOH: Denied Illicit drug use: Denied Review of system 10 point review system negative except listed above PHYSICAL EXAMINATION: VITAL SIGNS: Please see below. Objective:VITAL SIGNS: Please see below. GENERAL APPEARANCE: Well-nourished, well-developed HEENT: Normocephalic, atraumatic. Mucous members moist and pink CARDIOVASCULAR: Regular rate and rhythm. No murmurs, rubs or gallops. Radial pulses are intact. There is no lower extremity edema LUNGS: Diminished lung sounds, ABDOMEN: Abdomen is soft and nontender. MUSCULOSKELETAL: Range of motion is intact in all 4 extremities NEUROLOGICAL: Cranial nerves II-12 are grossly intact. Speech is not dysarthric LABORATORY DATA: Please see below. ASSESSMENT/PLAN: Patient is 29 years old male with past medical history of lupus, hypertension, anxiety presented to the hospital after he developed suicidal ideation. Patient denied fever, chills, chest pain, palpitations nausea, vomiting, diarrhea or dysuria Hypertension Continue chlorthalidone 25 mg daily Lupus Continue his home meds Hyperlipidemia Will check lipid profile Continue home meds Vital Signs/I&O Vital Signs Date Time Temp Pulse Resp B/P (MAP) Pulse Ox O2 Delivery O2 Flow Rate FiO2 06/12/19 06:37 97.8 110 16 140/94 (109) 06/10/19 14:50 100 Room Air Allergies Coded Allergies: No Known Allergies (Unverified , 06/10/19) Home Medications Scheduled Aspirin (Aspir-Low) 81 Mg Tablet.dr, 81 MG PO DAILY, (Reported) Chlorthalidone (Chlorthalidone) 25 Mg Tablet, 25 MG PO DAILY, (Reported) Ezetimibe (Zetia) 10 Mg Tablet, 10 MG PO DAILY, (Reported) Fluocinonide/Emollient Base (Fluocinonide-E 0.05% Cream) 15 Gm Cream..g., 1 DOSE EXT DAILY, (Reported) Hydroxychloroquine Sulfate (Hydroxychloroquine Sulfate) 200 Mg Tablet, 200 MG PO BID, (Reported) Ketoconazole (Ketoconazole) 120 Ml Shampoo, 1 DOSE TOP 3XW, (Reported) THURSDAY, THURSDAY AND THURSDAY L.acidoph/L.bulg/B.bif/S.therm (Bacid Caplet) 1 Each Tablet, 1 TAB PO BID, (Reported) Salmeterol/Fluticasone (Advair 500-50 Diskus) 1 Each Blst.w.dev, 1 PUFF INH BID, (Reported) Tacrolimus (Protopic) 100 Gm Oint...g., 1 DOSE EXT BID, (Reported) Scheduled PRN Albuterol Sulfate (Ventolin Hfa) 18 Gm Hfa.aer.ad, 2 PUFF INH Q4H PRN for SHORTNESS OF BREATH, (Reported) Hydroxyzine HCl (Hydroxyzine HCl) 25 Mg Tablet, 25 MG PO QID PRN for ANXIETY, (Reported) RODNEY DALTON DO Jun 12, 2019 12:19
[2019-06-12 13:43] LABS: CHOLESTEROL RISK RATIO 3.517 (<5)
[2019-06-12] MEDS: CHLORTHALIDONE 25 MG TAB PO SCH (14:05)
[2019-06-12 15:43] VITALS: BP 128/80
--- NOTE | 2019-06-12 19:56 | MHIPN ---
DATE: 06/12/2019 The patient today states that he slept all night. He says the Klonopin helped with anxiety but his fears are still very overwhelming for him. He is denying suicidal ideations. MENTAL STATUS EXAMINATION: He is alert and oriented times three. He is verbally spontaneous. Eye contact is fair. Psychomotor activity is increased due to anxiety. There is no formal thought disorder noted. Mood is anxious. Affect is full range and appropriate. He is not psychotic, suicidal or homicidal. Concentration and memory are good. Insight and judgment fair. 1.DIAGNOSES: 1. Major depressive disorder, recurrent, severe without psychotic symptoms. 2. Generalized anxiety disorder. 3. Panic disorder. 4. Rule out Illness anxiety disorder. TREATMENT PLAN: At this point we will continue to monitor the patient and titrate his medications as indicated. We will monitor him for continued resolution of suicidal ideations. RENETTA
[2019-06-12] MEDS: traZODone 50 MG TAB PO PRN (20:37)
[2019-06-12] MEDS: OLANZapine ORAL DISINTEGRATING TAB 5MG PO SCH (20:37)
[2019-06-12] MEDS: SERTRALINE 100 MG TAB PO SCH (20:37)
[2019-06-13 06:18] VITALS: BP 144/82
[2019-06-13] MEDS: NICOTINE 21MG/24HR 1 EA TRANSDERMAL TD SCH (09:05)
[2019-06-13] MEDS: clonazePAM 0.5 MG TAB PO SCH ×3 (09:06→20:29)
[2019-06-13] MEDS: CHLORTHALIDONE 25 MG TAB PO SCH (09:06)
--- NOTE | 2019-06-13 09:32 | MHIPNPDOC ---
[facility] Progress Note Progress Note DATE OF SERVICE: 06/13/19 HISTORY: As per ED- This is a 29-year-old white man who is hospitalized for the first time. He came to the hospital from [facility], as he had voiced suicidal ideations. This patient states that over the past few years, he has increasingly become more and more fearful that something terrible is going to happen to him. He is particularly afraid of . He states that, for example, if he has the flu, he starts thinking the worse. He states that more and more he has isolated and the only place where he feels safe is in his own bedroom, and only if it is just his family, his parents and his fiance, that are in the house. He states that he is afraid that he is going to do something impulsive to kill himself. He says that there are moments that he gets so afraid, and he goes into a panic episode. He says that recently he is so afraid of taking a shower, because he had a panic attack while he was showering once. He states, "I could be fine one minute and then my brain triggers anxiety, and I get a cold sensation in my back, my stomach hurts," and then he goes into a panic with palpitations and shortness of breath. He says that before this started, he used to like to go to a lot of places and do a lot of things, so this has not always been a problem for him. His primary care provider has been treating him with Zoloft 50 mg once a day for the past year. It has not really been too effective. Patient is also feeling v yenni depressed, feeling hopeless and helpless. The patient states that his fears are now getting to the point where he is beginning to feel that he cannot trust any doctors. The patient has never had any prior psychiatric treatment since he started to have problems with these fears about his health. He did have some very brief treatment as a child back in 2006, and I did review a note from Dr. Liu, a child psychiatrist, at [facility], but mostly it says that he was having a lot of anxiety at the time due to a lot of problems that he was having in school. It mentions that he had attention deficit hyperactivity disorder and apparently had a trial of Ritalin, but apparently he had side effects from it, and so it appears that Dr. Liu did not prescribe any medication for him, even though he had diagnosis of attention deficit hyperactivity disorder (ADHD).. VITAL SIGNS: See below. NEW TEST RESULTS: See below. CURRENT MEDICATIONS: See below. MENTAL STATUS EXAMINATION: Anxious and preoccupied with thoughts of illness Patient is a 29-year old male, who is his own clothes, clean, with excoriations on his face. Speech: Is clear, normal volume, regular rate and rhythm. Language skills are intact. Thought processes including: concrete. Thought content: preoccupied with Lupus diagnosis and "there are germs everywhere that could kill me." Denies SI, HI, AVH. Abstract reasoning, and computation: intact. Description of associations: denies Description of abnormal or psychotic thoughts: denies. Judgment: poor. Insight: poor. Orientation: AAOx3. Recent and remote memory: intact. Attention span and concentration: intact. Language: intact. Fund of knowledge: intact. Mood: "anxious about being here". Affect: incredibly anxious and paranoid of germs. DIAGNOSES: 1. Major depressive disorder, recurrent, severe without psychotic symptoms. 2. Generalized anxiety disorder. 3. Panic disorder. 4. Rule out Illness anxiety disorder. ASSESSMENT: Pt seen and states he "anxious about being here and wants to go home." States he was able to sleep last night with the help of the Klonopin but he is still anxious about being in [facility] and does not like the fact he has a roommate. He is preoccupied with his Lupus diagnosis and believes that "people are disgusting... the germs that people have from not wiping could kill me." Pt is adamant that he should go home and that being in [facility] is "not helping his anxiety, in fact it is making it worse." He is encouraged to attend groups- he had gone over the weekend but left because he started feeling anxious seeing people coughing and sneezing. He denies insomnia, SI/HI, hallucinations, delusions. Despite pts doubts, staff has noticed an improvement with his anxiety and his behaviors to cope his anxiety- he was able to have 2 BMs over the weekend, he was able to shower, and the excoriations on his face have improved. Recommended to continue treatment in [facility] as improvements have been seen. Pt feels safe here. MANAGEMENT PLAN: Zoloft 100 mg qhs. Klonopin 0.5 mg BID. Atarax 25 mg prn. Agree with student note. Dr. Kayli Diamond TIME SPENT: 30 minutes. Vital Signs Vital Signs Date Time Temp Pulse Resp B/P (MAP) Pulse Ox O2 Delivery O2 Flow Rate FiO2 06/13/19 06:18 97.7 88 18 144/82 (102) 06/10/19 14:50 100 Room Air Laboratory Data 24H Labs Laboratory Tests 2 06/12/19 12:57: Triglycerides Level 81, Total Cholesterol 102, LDL Cholesterol 57, Non-HDL Cholesterol (LDL + VLDL) 73, Total HDL Cholesterol 29L, Cholesterol/HDL Ratio 3.517 Current Medications Current Medications Medications (Trade) Dose Ordered Sig/Jazlyn Route PRN Reason Start Time Stop Time Status Last Admin Dose Admin Acetaminophen (Tylenol Tab) 650 mg Q6HP PRN PO HEADACHE or DISCOMFORT 06/10/19 12:30 Al Hydrox/Mg Hydrox/Simethicone (Mylanta) 30 ml Q4HP PRN PO HEARTBURN/INDIGESTION 06/10/19 12:30 Chlorthalidone (Hygroton) 25 mg DAILY PO 06/12/19 14:00 06/13/19 09:06 Clonazepam (KlonoPIN) 0.5 mg TID PO 06/11/19 16:00 06/13/19 09:06 Home Med (Med Rec Complete!) ASDIRECTED XX 06/10/19 06:00 06/10/19 05:55 DC Hydroxyzine HCl (Atarax) 25 mg QID PRN PO ANXIETY 06/10/19 17:00 Magnesium Hydroxide (Milk Of Magnesia) 30 ml DAILYPRN PRN PO CONSTIPATION 06/10/19 12:30 Nicotine (Nicoderm Cq 21mg) 1 patch DAILY TD 06/10/19 09:00 06/13/19 09:05 Olanzapine (ZyPREXA ZYDIS) 5 mg Q4HP PRN PO ANXIETY/AGITATION 06/10/19 17:00 06/11/19 15:19 Olanzapine (ZyPREXA ZYDIS) 5 mg QHS PO 06/11/19 21:00 06/12/19 20:37 Sertraline HCl (Zoloft) 100 mg QHS PO 06/11/19 21:00 06/12/19 20:37 Trazodone HCl (Desyrel) 50 mg QHSP PRN PO INSOMNIA 06/10/19 12:30 06/12/19 20:37 Allergies Coded Allergies: No Known Allergies (Unverified , 06/10/19) PARUL HAN S-IV Jun 13, 2019 09:26 KAYLI DIAMOND DO Jun 13, 2019 11:29
[2019-06-13 18:00] VITALS: BP 147/81
[2019-06-13] MEDS: OLANZapine ORAL DISINTEGRATING TAB 5MG PO SCH (20:29)
[2019-06-13] MEDS: traZODone 50 MG TAB PO PRN (20:29)
[2019-06-13] MEDS: SERTRALINE 100 MG TAB PO SCH (20:29)
[2019-06-14 06:30] VITALS: BP 141/87
[2019-06-14] MEDS: NICOTINE 21MG/24HR 1 EA TRANSDERMAL TD SCH (08:13)
[2019-06-14] MEDS: clonazePAM 0.5 MG TAB PO SCH ×3 (08:13→20:11)
[2019-06-14] MEDS: CHLORTHALIDONE 25 MG TAB PO SCH (08:14)
--- NOTE | 2019-06-14 08:49 | MHIPNPDOC ---
[facility] Progress Note Progress Note DATE OF SERVICE: 06/14/19 HISTORY: As per ED- This is a 29-year-old white man who is hospitalized for the first time. He came to the hospital from [facility], as he had voiced suicidal ideations. This patient states that over the past few years, he has increasingly become more and more fearful that something terrible is going to happen to him. He is particularly afraid of . He states that, for example, if he has the flu, he starts thinking the worse. He states that more and more he has isolated and the only place where he feels safe is in his own bedroom, and only if it is just his family, his parents and his fiance, that are in the house. He states that he is afraid that he is going to do something impulsive to kill himself. He says that there are moments that he gets so afraid, and he goes into a panic episode. He says that recently he is so afraid of taking a shower, because he had a panic attack while he was showering once. He states, "I could be fine one minute and then my brain triggers anxiety, and I get a cold sensation in my back, my stomach hurts," and then he goes into a panic with palpitations and shortness of breath. He says that before this started, he used to like to go to a lot of places and do a lot of things, so this has not always been a problem for him. His primary care provider has been treating him with Zoloft 50 mg once a day for the past year. It has not really been too effective. Patient is also feeling v yenni depressed, feeling hopeless and helpless. The patient states that his fears are now getting to the point where he is beginning to feel that he cannot trust any doctors. The patient has never had any prior psychiatric treatment since he started to have problems with these fears about his health. He did have some very brief treatment as a child back in 2006, and I did review a note from Dr. Liu, a child psychiatrist, at [facility], but mostly it says that he was having a lot of anxiety at the time due to a lot of problems that he was having in school. It mentions that he had attention deficit hyperactivity disorder and apparently had a trial of Ritalin, but apparently he had side effects from it, and so it appears that Dr. Liu did not prescribe any medication for him, even though he had diagnosis of attention deficit hyperactivity disorder (ADHD).. VITAL SIGNS: See below. NEW TEST RESULTS: See below. CURRENT MEDICATIONS: See below. MENTAL STATUS EXAMINATION: Anxious and preoccupied with thoughts of illness Patient is a 29-year old male, who is his own clothes, clean, with excoriations on his face. Speech: Is clear, normal volume, regular rate and rhythm. Language skills are intact. Thought processes including: concrete. Thought content: preoccupied with Lupus diagnosis and "there are germs everywhere that could kill me." Denies SI, HI, AVH. Abstract reasoning, and computation: intact. Description of associations: denies Description of abnormal or psychotic thoughts: denies. Judgment: poor. Insight: poor. Orientation: AAOx3. Recent and remote memory: intact. Attention span and concentration: intact. Language: intact. Fund of knowledge: intact. Mood: "anxious ". Affect: incredibly anxious and paranoid of germs. DIAGNOSES: 1. Major depressive disorder, recurrent, severe without psychotic symptoms. 2. Generalized anxiety disorder. 3. Panic disorder w/agoraphobia 4. Rule out Illness anxiety disorder. ASSESSMENT: Pt seen and states he's still very "anxious" especially of being around people due to fear of germs from them. He is pushing himself to go to groups and has been to 3 but can not stay longer than 20min otherwise isolates in his room. Encouraged to push himself more to go to groups for longer periods of time and socialize more to improve anxiety thru extinction of it. Thus far is planning on isolating in his basement again at home which would cause him to decompensate back to the state that brought him in. States his meds are beneficial and he's tolerating them well. He is preoccupied with germs from others and going out in public with other people for fear he will get sick. Pt is hopeful to go home but only b/c he's less fearful there of getting sick from others due to him isolating. He denies insomnia, SI/HI, hallucinations, delusions. Despite pts doubts, staff has noticed an improvement with his anxiety and his behaviors to cope his anxiety- he was able to have 2 BMs over the weekend, he was able to shower, and the excoriations on his face have improved. Recommended to continue treatment in [facility] as improvements have been seen. Pt feels safe here. MANAGEMENT PLAN: Zoloft 100 mg qhs. Klonopin 0.5 mg BID. Atarax 25 mg prn. TIME SPENT: 30 minutes. Vital Signs Vital Signs Date Time Temp Pulse Resp B/P (MAP) Pulse Ox O2 Delivery O2 Flow Rate FiO2 06/14/19 06:30 97.5 95 12 141/87 (105) Room Air 06/10/19 14:50 100 Current Medications Current Medications Medications (Trade) Dose Ordered Sig/Jazlyn Route PRN Reason Start Time Stop Time Status Last Admin Dose Admin Acetaminophen (Tylenol Tab) 650 mg Q6HP PRN PO HEADACHE or DISCOMFORT 06/10/19 12:30 Al Hydrox/Mg Hydrox/Simethicone (Mylanta) 30 ml Q4HP PRN PO HEARTBURN/INDIGESTION 06/10/19 12:30 Chlorthalidone (Hygroton) 25 mg DAILY PO 06/12/19 14:00 06/14/19 08:14 Clonazepam (KlonoPIN) 0.5 mg TID PO 06/11/19 16:00 06/14/19 08:13 Home Med (Med Rec Complete!) ASDIRECTED XX 06/10/19 06:00 06/10/19 05:55 DC Hydroxyzine HCl (Atarax) 25 mg QID PRN PO ANXIETY 06/10/19 17:00 Magnesium Hydroxide (Milk Of Magnesia) 30 ml DAILYPRN PRN PO CONSTIPATION 06/10/19 12:30 Nicotine (Nicoderm Cq 21mg) 1 patch DAILY TD 06/10/19 09:00 06/14/19 08:13 Olanzapine (ZyPREXA ZYDIS) 5 mg Q4HP PRN PO ANXIETY/AGITATION 06/10/19 17:00 06/11/19 15:19 Olanzapine (ZyPREXA ZYDIS) 5 mg QHS PO 06/11/19 21:00 06/13/19 20:29 Sertraline HCl (Zoloft) 100 mg QHS PO 06/11/19 21:00 06/13/19 20:29 Trazodone HCl (Desyrel) 50 mg QHSP PRN PO INSOMNIA 06/10/19 12:30 06/13/19 20:29 Allergies Coded Allergies: No Known Allergies (Unverified , 06/10/19) WENCESLAO VEGAS DO Jun 14, 2019 8:49 am
[2019-06-14] MEDS: OLANZapine ORAL DISINTEGRATING TAB 5MG PO PRN (11:48)
[2019-06-14] MEDS ORDERED: ALBUTEROL 90 MCG/ACT 8GM HFA INHALER INH PRN (15:45)
[2019-06-14] MEDS ORDERED: ENTER DRUG NAME HERE (PATIENT'S OWN MED) EXT SCH (15:45)
[2019-06-14 16:23] VITALS: BP 128/78
[2019-06-14] MEDS: LACTOBACILLUS ACIDOPHILUS CAP (BACID) PO SCH (20:11)
[2019-06-14] MEDS: ADVAIR HFA 230/21MCG INHALER INH SCH (20:11)
[2019-06-14] MEDS: traZODone 50 MG TAB PO PRN (20:11)
[2019-06-14] MEDS: SERTRALINE 100 MG TAB PO SCH (20:11)
[2019-06-14] MEDS: HYDROXYCHLOROQUINE 200 MG TAB PO SCH (20:11)
[2019-06-14] MEDS: OLANZapine ORAL DISINTEGRATING TAB 5MG PO SCH (20:11)
[2019-06-15 06:36] VITALS: BP 135/99
--- NOTE | 2019-06-15 07:53 | MHIPNPDOC ---
[facility] Progress Note Progress Note DATE OF SERVICE: 06/15/19 HISTORY: As per ED- This is a 29-year-old white man who is hospitalized for the first time. He came to the hospital from [facility], as he had voiced suicidal ideations. This patient states that over the past few years, he has increasingly become more and more fearful that something terrible is going to happen to him. He is particularly afraid of . He states that, for example, if he has the flu, he starts thinking the worse. He states that more and more he has isolated and the only place where he feels safe is in his own bedroom, and only if it is just his family, his parents and his fiance, that are in the house. He states that he is afraid that he is going to do something impulsive to kill himself. He says that there are moments that he gets so afraid, and he goes into a panic episode. He says that recently he is so afraid of taking a shower, because he had a panic attack while he was showering once. He states, "I could be fine one minute and then my brain triggers anxiety, and I get a cold sensation in my back, my stomach hurts," and then he goes into a panic with palpitations and shortness of breath. He says that before this started, he used to like to go to a lot of places and do a lot of things, so this has not always been a problem for him. His primary care provider has been treating him with Zoloft 50 mg once a day for the past year. It has not really been too effective. Patient is also feeling v yenni depressed, feeling hopeless and helpless. The patient states that his fears are now getting to the point where he is beginning to feel that he cannot trust any doctors. The patient has never had any prior psychiatric treatment since he started to have problems with these fears about his health. He did have some very brief treatment as a child back in 2006, and I did review a note from Dr. Liu, a child psychiatrist, at [facility], but mostly it says that he was having a lot of anxiety at the time due to a lot of problems that he was having in school. It mentions that he had attention deficit hyperactivity disorder and apparently had a trial of Ritalin, but apparently he had side effects from it, and so it appears that Dr. Liu did not prescribe any medication for him, even though he had diagnosis of attention deficit hyperactivity disorder (ADHD).. VITAL SIGNS: See below. NEW TEST RESULTS: See below. CURRENT MEDICATIONS: See below. MENTAL STATUS EXAMINATION: Anxious and preoccupied with thoughts of illness Patient is a 29-year old male, who is his own clothes, clean, with excoriations on his face. Speech: Is clear, normal volume, regular rate and rhythm. Language skills are intact. Thought processes including: concrete. Thought content: preoccupied with Lupus diagnosis. Denies SI, HI, AVH. Abstract reasoning, and computation: intact. Description of associations: denies Description of abnormal or psychotic thoughts: denies. Judgment: poor. Insight: poor. Orientation: AAOx3. Recent and remote memory: intact. Attention span and concentration: intact. Language: intact. Fund of knowledge: intact. Mood: "anxious ". Affect: incredibly anxious and paranoid of germs. DIAGNOSES: 1. Major depressive disorder, recurrent, severe without psychotic symptoms. 2. Generalized anxiety disorder. 3. Panic disorder w/agoraphobia 4. Rule out Illness anxiety disorder. ASSESSMENT: Pt seen and states he's still very "anxious" especially of being around people due to fear of germs from them. He is pushing himself to go to groups and has been to 3 but can not stay longer than 20min otherwise isolates in his room. Encouraged to push himself more to go to groups for longer periods of time and socialize more to improve anxiety thru extinction of it. Thus far is planning on isolating in his basement again at home which would cause him to decompensate back to the state that brought him in. Pt states that his anxiety was a 4/10 before taking his medications but endorses that his anxiety is much improved from the beginning of his stay. Pt appears to be less anxious although he is still preoccupied with his Lupus diagnosis and returning to his basement. Pt stated that "being here is taking a toll on my family. My mother will do anything the doctors ask as long as I can go home. My fiance is missing work." Recommend calling mother to state that he is improving in [facility] and staying would be to his benefit. States his meds are beneficial and he's tolerating them well. He is preoccupied with germs from others and going out in public with other people for fear he will get sick. Pt is hopeful to go home but only b/c he's less fearful there of getting sick from others due to him isolating. He denies insomnia, SI/HI, hallucinations, delusions. Despite pts doubts, staff has noticed an improvement with his anxiety and his behaviors to cope his anxiety- he was able to have 2 BMs over the weekend, he was able to shower, and the excoriations on his face have improved. Recommended to continue treatment in [facility] as improvements have been seen. Pt feels safe here. MANAGEMENT PLAN: Zoloft 100 mg qhs. Klonopin 0.5 mg BID. Atarax 25 mg prn. TIME SPENT: 30 minutes. Vital Signs Vital Signs Date Time Temp Pulse Resp B/P (MAP) Pulse Ox O2 Delivery O2 Flow Rate FiO2 06/15/19 06:36 98.2 110 16 135/99 (111) 06/14/19 06:30 Room Air 06/10/19 14:50 100 Current Medications Current Medications Medications (Trade) Dose Ordered Sig/Jazlyn Route PRN Reason Start Time Stop Time Status Last Admin Dose Admin Acetaminophen (Tylenol Tab) 650 mg Q6HP PRN PO HEADACHE or DISCOMFORT 06/10/19 12:30 Al Hydrox/Mg Hydrox/Simethicone (Mylanta) 30 ml Q4HP PRN PO HEARTBURN/INDIGESTION 06/10/19 12:30 Albuterol Sulfate (Proventil, Ventolin Hfa) 2 puff RQ4H PRN INH SHORTNESS OF BREATH 06/14/19 15:45 Aspirin (Ecotrin) 81 mg DAILY PO 06/15/19 09:00 Chlorthalidone (Hygroton) 25 mg DAILY PO 06/12/19 14:00 06/14/19 08:14 Clonazepam (KlonoPIN) 0.5 mg TID PO 06/11/19 16:00 06/14/19 20:11 EZETIMIBE (Zetia) 10 mg DAILY PO 06/15/19 09:00 Fluocinonide (Lidex) APPLY TO LEISION DAILY EXT 06/15/19 09:00 Home Med (Med Rec Complete!) ASDIRECTED XX 06/10/19 06:00 06/10/19 05:55 DC Hydroxychloroquine Sulfate (Plaquenil) 200 mg BID PO 06/14/19 21:00 06/14/19 20:11 Hydroxyzine HCl (Atarax) 25 mg QID PRN PO ANXIETY 06/10/19 17:00 Lactobacillus Acidophilus (Bacid) 1 ea BID PO 06/14/19 21:00 06/14/19 20:11 Magnesium Hydroxide (Milk Of Magnesia) 30 ml DAILYPRN PRN PO CONSTIPATION 06/10/19 12:30 Miscellaneous (Unresolved Patient Own Med Order) SEE LABEL COMMENTS DAILY XX 06/14/19 09:00 Nicotine (Nicoderm Cq 21mg) 1 patch DAILY TD 06/10/19 09:00 06/14/19 08:13 Olanzapine (ZyPREXA ZYDIS) 5 mg Q4HP PRN PO ANXIETY/AGITATION 06/10/19 17:00 06/14/19 11:48 Olanzapine (ZyPREXA ZYDIS) 5 mg QHS PO 06/11/19 21:00 06/14/19 20:11 Patient Own Medication (Patient'S Own Med) KETOCONAZOLE SHAMPOO DAILY TOP 06/15/19 09:00 UNV Patient Own Medication (Patient'S Own Med) Tacrolimus ASDIRECTED EXT 06/14/19 15:45 UNV Salmeterol Xinafoate/ Fluticasone (Advair Hfa 230/ 21) 1 puff RBID INH 06/14/19 20:00 06/14/19 20:11 Sertraline HCl (Zoloft) 100 mg QHS PO 06/11/19 21:00 06/14/19 20:11 Trazodone HCl (Desyrel) 50 mg QHSP PRN PO INSOMNIA 06/10/19 12:30 06/14/19 20:11 Allergies Coded Allergies: No Known Allergies (Unverified , 06/10/19) GME ATTESTATION My faculty preceptor for this patient encounter was physically present during the encounter and was fully available. All aspects of the patient interview, examination, medical decision making process, and medical care plan development were reviewed and approved by the faculty preceptor. The faculty preceptor is aware and concurs with the plan as stated in the body of this note and will attest to such by his/her cosignature. PARUL HAN OMS-IV Jun 15, 2019 07:53
[2019-06-15] MEDS: ADVAIR HFA 230/21MCG INHALER INH SCH (08:17)
[2019-06-15] MEDS: LACTOBACILLUS ACIDOPHILUS CAP (BACID) PO SCH (08:19)
[2019-06-15] MEDS: HYDROXYCHLOROQUINE 200 MG TAB PO SCH (08:19)
[2019-06-15] MEDS: NICOTINE 21MG/24HR 1 EA TRANSDERMAL TD SCH (08:19)
[2019-06-15] MEDS: clonazePAM 0.5 MG TAB PO SCH (08:20)
[2019-06-15] MEDS: CHLORTHALIDONE 25 MG TAB PO SCH (08:20)
[2019-06-15] MEDS ORDERED: CLON0.5T2 PO ×3 (08:39→11:32)
[2019-06-15] MEDS ORDERED: TRAZ-252 PO (08:39)
[2019-06-15] MEDS ORDERED: SERT-138 PO (08:39)
[2019-06-15] MEDS ORDERED: HYDR-3363 PO (08:39)
--- NOTE | 2019-06-15 08:44 | MHDSPDOC ---
[facility] Discharge Summary Discharge Summary DATE OF ADMISSION: Jun 10, 2019 at 12:24 pm DATE OF DISCHARGE: Jun 15, 2019 DISCHARGE DIAGNOSES: 1. Major depressive disorder, recurrent, severe without psychotic symptoms. 2. Generalized anxiety disorder. 3. Panic disorder w/agoraphobia 4. Rule out Illness anxiety disorder. REASON FOR ADMISSION:As per ED- This is a 29-year-old white man who is hospitalized for the first time. He came to the hospital from [facility], as he had voiced suicidal ideations. This patient states that over the past few years, he has increasingly become more and more fearful that something terrible is going to happen to him. He is particularly afraid of . He states that, for example, if he has the flu, he starts thinking the worse. He states that more and more he has isolated and the only place where he feels safe is in his own bedroom, and only if it is just his family, his parents and his fiance, that are in the house. He states that he is afraid that he is going to do something impulsive to kill himself. He says that there are moments that he gets so afraid, and he goes into a panic episode. He says that recently he is so afraid of taking a shower, because he had a panic attack while he was showering once. He states, "I could be fine one minute and then my brain triggers anxiety, and I get a cold sensation in my back, my stomach hurts," and then he goes into a panic with palpitations and shortness of breath. He says that before this started, he used to like to go to a lot of places and do a lot of things, so this has not always been a problem for him. His primary care provider has been treating him with Zoloft 50 mg once a day for the past year. It has not really been too effective. Patient is also feeling very depressed, feeling hopeless and helpless. The patient states that his fears are now getting to the point where he is beginning to feel that he cannot trust any doctors. The patient has never had any prior psychiatric treatment since he started to have problems with these fears about his health. He did have some very brief treatment as a child back in 2006, and I did review a note from Dr. Liu, a child psychiatrist, at [facility], but mostly it says that he was having a lot of anxiety at the time due to a lot of problems that he was having in school. It mentions that he had attention deficit hyperactivity disorder and apparently had a trial of Ritalin, but apparently he had side effects from it, and so it appears that Dr. Liu did not prescribe any medication for him, even though he had diagnosis of attention deficit hyperactivity disorder (ADHD). CONSULTANTS INVOLVED: medicine regarding Lupus TREATMENT AND PROGRESS ON THE UNIT : Pt was admitted to [facility], seen for psychiatric assessment and restarted on his outpatient medication zoloft increased to 100mg daily and Klonopin 0.5mg bid. He was provided atarax 25mg qid prn anxiety and trazodone 50mg qhs prn insomnia. Pt found his medications beneficial and tolerated them well. He attended groups daily during his stay. His anxiety improved greatly with treatment. His symptoms improved with treatment. On day of discharge he denied depression, anxiety, insomnia, SI/HI, hallucinations, delusions. He was discharged home to his parents house with plans to move out of the basement and socialize more out of his home. He will follow-up at [facility]. He felt safe for discharge. DISCHARGE ASSESSMENT: Pt seen and states that his mood is "good" and his anxiety and ability to socialize on the unit are greatly improved. He is looking forward to going home today with plans to move out of the basement and socialize more out of his home. States he slept well last night. Feels he is tolerating his medications and they're beneficial. He is attending groups and finding them helpful. He denies depression, anxiety, insomnia, SI/HI, hallucinations, delusions. Pt feels safe to d/c home today. MENTAL STATUS EXAMINATION ON DISCHARGE: Patient is a 29-year old male, who is his own clothes, clean, with excoriations on his face. Speech: Is clear, normal volume, regular rate and rhythm. Language skills are intact. Thought processes including: linear, logical, future oriented Thought content: greatly improved preoccupation with Lupus diagnosis. Denies SI, HI, AVH. Abstract reasoning, and computation: intact. Description of associations: denies Description of abnormal or psychotic thoughts: denies. Judgment: good Insight: good Orientation: AAOx3. Recent and remote memory: intact. Attention span and concentration: intact. Language: intact. Fund of knowledge: intact. Mood: "good ". Affect: greatly improved anxiety, euthymic, full MEDICATIONS ON DISCHARGE: Zoloft 100 mg qhs Klonopin 0.5 mg BID Atarax 25 mg qid prn. PLAN/FOLLOWUP ARRANGEMENTS: D/c home with follow-up at [facility]. The amount of time spent in the coordination of care for this patient was approximately 30 minutes. Vital Signs/I&Os Vital Signs Date Time Temp Pulse Resp B/P (MAP) Pulse Ox O2 Delivery O2 Flow Rate FiO2 06/15/19 06:36 98.2 110 16 135/99 (111) 06/14/19 06:30 Room Air 06/10/19 14:50 100 Medications Scheduled Aspirin (Aspir-Low) 81 Mg Tablet.dr, 81 MG PO DAILY, (Reported) Chlorthalidone (Chlorthalidone) 25 Mg Tablet, 25 MG PO DAILY, (Reported) Ezetimibe (Zetia) 10 Mg Tablet, 10 MG PO DAILY, (Reported) Fluocinonide/Emollient Base (Fluocinonide-E 0.05% Cream) 15 Gm Cream..g., 1 DOSE EXT DAILY, (Reported) Hydroxychloroquine Sulfate (Hydroxychloroquine Sulfate) 200 Mg Tablet, 200 MG PO BID, (Reported) Ketoconazole (Ketoconazole) 120 Ml Shampoo, 1 DOSE TOP 3XW, (Reported) THURSDAY, THURSDAY AND THURSDAY L.acidoph/L.bulg/B.bif/S.therm (Bacid Caplet) 1 Each Tablet, 1 TAB PO BID, (Reported) Salmeterol/Fluticasone (Advair 500-50 Diskus) 1 Each Blst.w.dev, 1 PUFF INH BID, (Reported) Tacrolimus (Protopic) 100 Gm Oint...g., 1 DOSE EXT BID, (Reported) Scheduled PRN Albuterol Sulfate (Ventolin Hfa) 18 Gm Hfa.aer.ad, 2 PUFF INH Q4H PRN for SHORTNESS OF BREATH, (Reported) Hydroxyzine HCl (Hydroxyzine HCl) 25 Mg Tablet, 25 MG PO QID PRN for ANXIETY, (Reported) Allergies Coded Allergies: No Known Allergies (Unverified , 06/10/19) WENCESLAO VEGAS DO Jun 15, 2019 8:44 am
[2019-06-15] MEDS ORDERED: ASPIRIN 81 MG ENTERIC TAB PO SCH (09:00)
[2019-06-15] MEDS ORDERED: ENTER DRUG NAME HERE (PATIENT'S OWN MED) TOP SCH (09:00)
[2019-06-15] MEDS ORDERED: EZETIMIBE 10 MG TAB (ZETIA) PO SCH (09:00)
[2019-06-15] MEDS ORDERED: FLUOCINONIDE 0.05% CREAM 15 GM EXT SCH (09:00)
[2019-06-15] MEDS: OLANZapine ORAL DISINTEGRATING TAB 5MG PO PRN (09:30)
[2019-06-15] MEDS ORDERED: ZYPR5TAB2 PO (11:30)
== END 2019-06-15 12:00 | disposition home or self-care (01) | DRG 751 ==
LOC: M ED 04:01 → M ED INP 12:24 → M PSY 14:58
PROVIDERS: ADMIT Psychiatry & Neurology Psychiatry; ATTEND Psychiatry & Neurology Psychiatry
DX: F33.2 Major depressive disorder, recurrent severe without psychotic features (principal); F41.1 Generalized anxiety disorder; F40.01 Agoraphobia with panic disorder; Z79.82 Long term (current) use of aspirin; Z79.899 Other long term (current) drug therapy

== ENCOUNTER → 2020-08-09 | Outpatient (CLI) | payer OTHER ==
[~2020-08-09] MED LIST: ADV500INH INH; ASPI81TA21 PO; BACITAB PO; CHLO25TA PO; CLON0.5T2 PO; FLUOCRE EXT; HYDR-3363 PO; HYDR200T3 PO; KETO2SHA8 TOP; PROT0.1O EXT; SERT-138 PO; TRAZ-252 PO; VENTAER INH; ZETI10TA16 PO; ZYPR5TAB2 PO
== END ==
LOC: M LABSMTC 12:17
PROVIDERS: ATTEND Anesthesiology
DX: Z01.812 Encounter for preprocedural laboratory examination (principal); Z20.822 Contact with and (suspected) exposure to COVID-19

== ENCOUNTER 2020-08-10 10:54 | Day surgery (SDC) | payer OTHER ==
[~2020-08-10] VITALS: Ht 175.3 cm; Wt 83.0 kg
[2020-08-10] MEDS ORDERED: NS 1,000 ML IV ONE (11:40)
[2020-08-10] MEDS ORDERED: fentaNYL 100 MCG/2 ML INJECTION (J3010) As Ordered ONE (12:40)
[2020-08-10] MEDS ORDERED: LIDOCAINE 2% 100MG/5ML SDV (FOR ANES.) As Ordered ONE (12:41)
[2020-08-10] MEDS ORDERED: propofoL 200 MG/20 ML VIAL As Ordered ONE ×2 (12:42→12:43)
--- NOTE | 2020-08-10 12:54 | ROOR ---
Patient Name: Charly Nieves Procedure Date: 08/10/2020 12:37 PM Date of : 1990 Age: 30 Room: [facility] Gender: Male Note Status: Finalized Procedure: Upper Endoscopy + Biopsies Indications: Generalized abdominal pain, Heartburn Providers: Alirio Kay MD Referring MD: Devin Lovell MD Requesting Provider: Medicines: Monitored Anesthesia Care Complications: No immediate complications. Procedure: Pre-Anesthesia Assessment: - The heart rate, respiratory rate, oxygen saturations, blood pressure, adequacy of pulmonary ventilation, and response to care were monitored throughout the procedure. The Endoscope was introduced through the mouth, and advanced to the second part of duodenum. The upper GI endoscopy was accomplished without difficulty. The patient tolerated the procedure well. Findings: The Z-line was variable and was found 40 cm from the incisors. Multiple biopsies were obtained with cold forceps for evaluation to rule out Castro's Esophagus randomly at the gastroesophageal junction. A small hiatal hernia was present. No other significant abnormalities were identified in a careful examination of the stomach. Biopsies were taken with a cold forceps in the gastric antrum for Helicobacter pylori testing. The exam of the duodenum was otherwise normal. Biopsies for histology were taken with a cold forceps in the first portion of the duodenum for evaluation of celiac disease. The exam was otherwise without abnormality. Impression: - Z-line variable, 40 cm from the incisors. - Small hiatal hernia. - The examination was otherwise normal. - Multiple biopsies were obtained at the gastroesophageal junction. - Biopsies were taken with a cold forceps for Helicobacter pylori testing. - Biopsies were taken with a cold forceps for evaluation of celiac disease. - The examination was otherwise normal. Recommendation: - Patient has a contact number available for emergencies. The signs and symptoms of potential delayed complications were discussed with the patient. Return to normal activities tomorrow. Written discharge instructions were provided to the patient. - Resume previous diet. - Discharge patient to home. - Follow an antireflux regimen. - Continue present medications. - Await pathology results. - Telephone GI clinic for pathology results in 1 week. - The findings and recommendations were discussed with the patient. Procedure Code(s): --- Professional --- 22030, Esophagogastroduodenoscopy, flexible, transoral; with biopsy, single or multiple Diagnosis Code(s): --- Professional --- K22.8, Other specified diseases of esophagus K44.9, Diaphragmatic hernia without obstruction or gangrene R10.84, Generalized abdominal pain R12, Heartburn CPT copyright 2019 [employer]. All rights reserved. The codes documented in this report are preliminary and upon investigations manager review may be revised to meet current compliance requirements. Alirio Kay MD Alirio Kay MD 08/10/2020 12:54:23 PM Electronically signed by Alirio Kay MD Number of Addenda: 0 Note Initiated On: 08/10/2020 12:37 PM Estimated Blood Loss: Estimated blood loss: none.
--- NOTE | 2020-08-10 13:11 | ROOR ---
Patient Name: Charly Nieves Procedure Date: 08/10/2020 12:38 PM Date of : 1990 Age: 30 Room: [facility] Gender: Male Note Status: Finalized Procedure: Total Colonoscopy to Cecum + ileoscopy + Bx Indications: Generalized abdominal pain, Rectal bleeding Providers: Alirio Kay MD Referring MD: Devin Lovell MD Requesting Provider: Medicines: Monitored Anesthesia Care Complications: No immediate complications. Procedure: Pre-Anesthesia Assessment: - The heart rate, respiratory rate, oxygen saturations, blood pressure, adequacy of pulmonary ventilation, and response to care were monitored throughout the procedure. The Colonoscope was introduced through the anus and advanced to the terminal ileum, with identification of the appendiceal orifice and IC valve. The colonoscopy was performed without difficulty. The patient tolerated the procedure well. The quality of the bowel preparation was excellent. Findings: The perianal and digital rectal examinations were normal. Non-bleeding internal hemorrhoids were found during retroflexion. The hemorrhoids were small and Grade I (internal hemorrhoids that do not prolapse). No other significant abnormalities were identified in a careful examination of the remainder of the colon. The terminal ileum appeared normal. Biopsies for histology were taken with a cold forceps from the ascending colon, transverse colon, descending colon and rectosigmoid colon for evaluation of microscopic colitis. The exam was otherwise without abnormality on direct and retroflexion views. Impression: - Non-bleeding internal hemorrhoids. - The examined portion of the ileum was normal. - The examination was otherwise normal on direct and retroflexion views. - Biopsies were taken with a cold forceps from the ascending colon, transverse colon, descending colon and rectosigmoid colon for evaluation of microscopic colitis. - The exam was otherwise normal to the cecum. Recommendation: - Patient has a contact number available for emergencies. The signs and symptoms of potential delayed complications were discussed with the patient. Return to normal activities tomorrow. Written discharge instructions were provided to the patient. - High fiber diet. - Discharge patient to home. - Use Analpram HC Cream 2.5%: Apply externally BID PRN. - Await pathology results. - Telephone GI clinic for pathology results in 1 week. - Return to referring physician. - Repeat colonoscopy at age 50 for screening purposes. - The findings and recommendations were discussed with the patient. Procedure Code(s): --- Professional --- 51374, Colonoscopy, flexible; with biopsy, single or multiple Diagnosis Code(s): --- Professional --- K64.0, First degree hemorrhoids R10.84, Generalized abdominal pain K62.5, Hemorrhage of anus and rectum CPT copyright 2019 [employer]. All rights reserved. The codes documented in this report are preliminary and upon information broker review may be revised to meet current compliance requirements. Alirio Kay MD Alirio Kay MD 08/10/2020 1:11:16 PM Electronically signed by Alirio Kay MD Number of Addenda: 0 Note Initiated On: 08/10/2020 12:38 PM Estimated Blood Loss: Estimated blood loss: none.
[2020-08-10 13:25] VITALS: BP 117/68
== END 2020-08-10 13:37 | disposition home or self-care (01) ==
LOC: M OPP 10:54
PROVIDERS: ATTEND Internal Medicine Gastroenterology
DX: K62.5 Hemorrhage of anus and rectum (principal); K64.8 Other hemorrhoids; R10.84 Generalized abdominal pain; K22.8 Other specified diseases of esophagus; K44.9 Diaphragmatic hernia without obstruction or gangrene; R12 Heartburn; F17.210 Nicotine dependence, cigarettes, uncomplicated; Z79.899 Other long term (current) drug therapy
CPT/HCPCS: 43239; 45380; 88305; J3010

== ENCOUNTER → 2020-11-01 | Outpatient (CLI) | payer OTHER ==
--- NOTE | 2020-11-01 12:34 | REPPI ---
INDICATION: M75.41 IMPINGEMENT SYNDROME OF RIGHT SHOULDER M32.9 LUPUS COMPARISON: None. TECHNIQUE: Internal rotation, external rotation, and Y view. FINDINGS: No acute fracture or dislocation. The acromioclavicular and glenohumeral joints are intact. No periarticular calcifications or degenerative changes are appreciated. Sub acromial space is normal. Surrounding soft tissues are unremarkable. IMPRESSION: Normal right shoulder radiographs. <Electronically signed by Mat Colon > 11/01/20 [id number]
--- NOTE | 2020-11-01 12:36 | REPPI ---
INDICATION: M75.41 IMPINGEMENT SYNDROME OF RIGHT SHOULDER M32.9 LUPUS COMPARISON: None. TECHNIQUE: AP, lateral, bilateral oblique and sunrise views right and left knee. FINDINGS: Mildly increased sclerosis along the bilateral tibial plateaus suggest age-related change. No further osteoarthritic or inflammatory arthritic changes are appreciated. No evidence for acute fracture or dislocation. No obvious effusion. IMPRESSION: Symmetric essentially age-appropriate examination of the bilateral knees. <Electronically signed by Mat Colon > 11/01/20 1185
== END ==
LOC: M PLAIMG 11:08
PROVIDERS: ATTEND Family Medicine
DX: M75.41 Impingement syndrome of right shoulder (principal); M32.9 Systemic lupus erythematosus, unspecified

== ENCOUNTER → 2020-11-01 | Outpatient (REF) | payer OTHER ==
[2020-11-01 13:47] LABS: BASO % 0.7 % (0.0-1.0); EOS # 0.1 10^3/uL (0.0-0.5); EOS % 4.3 % (0.0-3.0); HEMATOCRIT 45.7 % (42.0-52.0); HEMOGLOBIN 15.6 g/dl (13.5-17.5); LYMPH # 1.4 10^3/uL (1.5-5.0); LYMPH % 46.3 % (24.0-44.0); MEAN CORPUSCULAR HEMOGLOBIN 33.3 pg (27.0-33.0); MEAN CORPUSCULAR HGB CONC 34.1 g/dl (32.0-36.5); MEAN CORPUSCULAR VOLUME 97.6 fl (80.0-96.0); MONO # 0.3 10^3/uL (0.0-0.8); MONO % 10.7 % (2.0-8.0); NEUTROPHILS # 1.1 10^3/uL (1.5-8.5); NEUTROPHILS % 37.7 % (36.0-66.0); PLATELET COUNT, AUTOMATED 113 10^3/uL (150-450); RED BLOOD COUNT 4.68 10^6/uL (4.30-6.10)
[2020-11-01 14:03] LABS: HEMOGLOBIN A1c 4.8 %
[2020-11-01 14:05] LABS: CREATININE,RANDOM URINE 65.5 MG/DL; TOTAL PROTEIN,RANDOM URINE 8.8 MG/DL (0.0-12.0)
[2020-11-01 14:21] LABS: BLOOD UREA NITROGEN 11 MG/DL (7-18); CREATININE FOR GFR 0.95 MG/DL (0.70-1.30); GLUCOSE, FASTING 82 MG/DL (70-100)
[2020-11-01 14:22] LABS: ALBUMIN 4.1 GM/DL (3.2-5.2); ALT/SGPT 20 U/L (12-78); BILIRUBIN,TOTAL 0.6 MG/DL (0.2-1.0); CALCIUM LEVEL 8.9 MG/DL (8.5-10.1); CARBON DIOXIDE LEVEL 29 MEQ/L (21-32); CHLORIDE LEVEL 108 MEQ/L (98-107); CHOLESTEROL LEVEL 169 MG/DL (<200); CHOLESTEROL RISK RATIO 4.023 (<5); COMPLEMENT C3 90 MG/DL (90-180); COMPLEMENT C4 28 MG/DL (10-40); GLOMERULAR FILTRATION RATE > 60.0 (>60); HDL CHOLESTEROL 42 MG/DL (>40); LDL CHOLESTEROL 116 MG/DL (<100); NON-HDL-C 127 MG/DL; POTASSIUM SERUM 4.3 MEQ/L (3.5-5.1); SODIUM LEVEL 141 MEQ/L (136-145); TOTAL PROTEIN 7.7 GM/DL (6.4-8.2); TRIGLYCERIDES LEVEL 55 MG/DL (<150)
[2020-11-01 14:23] LABS: PTH INTACT 35.6 PG/ML (18.5-88.0); TOTAL 25(OH) VITAMIN D 23.8 NG/ML (30.0-100.0); VITAMIN B12 LEVEL 367 PG/ML (247-911)
[2020-11-02 11:48] LABS: ALBUMIN 4.71 GM/DL (3.29-5.55); ALBUMIN % 61.2 % (55.8-66.1); ALPHA-1-GLOBULIN % 4.2 % (2.9-4.9); ALPHA-1-GLOBULINS 0.32 GM/DL (0.17-0.41); BETA-1-GLOBULINS % 5.6 % (4.7-7.2)
[2020-11-02 11:49] LABS: ALPHA-2-GLOBULINS 0.62 GM/DL (0.42-0.99); BETA-1-GLOBULINS 0.43 GM/DL (0.28-0.60); BETA-2-GLOBULINS 0.39 GM/DL (0.19-0.55); GAMMA GLOBULINS 1.23 GM/DL (0.65-1.58)
== END ==
LOC: M SFHCPLAZ 11:08
PROVIDERS: ATTEND Family Medicine
DX: M32.9 Systemic lupus erythematosus, unspecified (principal); R73.01 Impaired fasting glucose; E78.5 Hyperlipidemia, unspecified; E55.9 Vitamin D deficiency, unspecified; D75.89 Other specified diseases of blood and blood-forming organs

== ENCOUNTER → 2021-10-10 | Outpatient (CLI) | payer OTHER ==
[2021-10-10 15:44] LABS: BASO % 0.6 % (0.0-1.0); EOS # 0.1 10^3/uL (0.0-0.5); EOS % 2.2 % (0.0-3.0); HEMATOCRIT 47.3 % (42.0-52.0); HEMOGLOBIN 16.3 g/dl (13.5-17.5); LYMPH # 1.4 10^3/uL (1.5-5.0); LYMPH % 40.1 % (24.0-44.0); MEAN CORPUSCULAR HEMOGLOBIN 32.7 pg (27.0-33.0); MEAN CORPUSCULAR HGB CONC 34.5 g/dl (32.0-36.5); MEAN CORPUSCULAR VOLUME 94.8 fl (80.0-96.0); MONO # 0.4 10^3/uL (0.0-0.8); MONO % 9.7 % (2.0-8.0); NEUTROPHILS # 1.7 10^3/uL (1.5-8.5); NEUTROPHILS % 47.1 % (36.0-66.0); PLATELET COUNT, AUTOMATED 125 10^3/uL (150-450); RED BLOOD COUNT 4.99 10^6/uL (4.30-6.10); WHITE BLOOD COUNT 3.6 10^3/uL (4.0-10.0)
[2021-10-10 15:51] LABS: ALBUMIN 4.9 GM/DL (3.2-5.2); ALT/SGPT 20 U/L (12-78); BILIRUBIN,TOTAL 0.5 MG/DL (0.2-1.0); BLOOD UREA NITROGEN 15 MG/DL (7-18); CALCIUM LEVEL 10.5 MG/DL (8.5-10.1); CARBON DIOXIDE LEVEL 28 MEQ/L (21-32); CHLORIDE LEVEL 107 MEQ/L (98-107); COMPLEMENT C3 110 MG/DL (90-180); COMPLEMENT C4 31 MG/DL (10-40); CREATININE FOR GFR 1.01 MG/DL (0.70-1.30); GLOMERULAR FILTRATION RATE > 60.0 (>60); GLUCOSE, FASTING 89 MG/DL (70-100); POTASSIUM SERUM 4.3 MEQ/L (3.5-5.1); SODIUM LEVEL 140 MEQ/L (136-145); TOTAL PROTEIN 8.3 GM/DL (6.4-8.2)
[2021-10-10 16:00] LABS: TOTAL 25(OH) VITAMIN D 13.8 NG/ML (30.0-100.0)
[2021-10-10 16:02] LABS: VITAMIN B12 LEVEL 587 PG/ML (247-911)
[2021-10-10 16:12] LABS: HEPATITIS B SURFACE ANTIGEN NEGATIVE (NEGATIVE)
[2021-10-10 16:38] LABS: HEPATITIS C VIRUS ABY INDEX 0.1 INDEX (<0.8)
[2021-10-10 16:39] LABS: HEPATITIS B CORE ANTIBODY IGM NEGATIVE (NEGATIVE)
[2021-10-10 19:27] LABS: ERYTHROCYTE SEDIMENTATION RATE 4 mm/hr (0-15)
== END ==
LOC: M PLALAB 12:52
PROVIDERS: ATTEND Physician Assistant
DX: R35.0 Frequency of micturition (principal); N50.89 Other specified disorders of the male genital organs; R63.4 Abnormal weight loss; I10 Essential (primary) hypertension; E78.5 Hyperlipidemia, unspecified; D72.819 Decreased white blood cell count, unspecified; M32.9 Systemic lupus erythematosus, unspecified

== ENCOUNTER → 2021-10-10 | Outpatient (REF) | payer OTHER ==
[2021-10-10 19:07] LABS: TOTAL PROTEIN,RANDOM URINE 12.8 MG/DL (0.0-12.0)
[2021-10-10 20:41] LABS: GC DNA AMPLIFICATION NEGATIVE (NEGATIVE)
== END ==
LOC: M SFHCPLAZ 17:07
PROVIDERS: ATTEND Physician Assistant
DX: R35.0 Frequency of micturition (principal)

== ENCOUNTER → 2021-10-14 | Outpatient (CLI) | payer OTHER | LOC: M RAD 14:23 | PROVIDERS: ATTEND Physician Assistant | DX: N50.89 Other specified disorders of the male genital organs (principal) ==

== ENCOUNTER → 2022-09-12 | Outpatient (CLI) | payer OTHER ==
[2022-09-12 15:22] LABS: APPEARANCE, URINE CLEAR (CLEAR); BACTERIA, URINE AUTO NEGATIVE (NEGATIVE); BILIRUBIN, URINE AUTO NEGATIVE (NEGATIVE); BLOOD, URINE BLOOD NEGATIVE (NEGATIVE); COLOR, URINE YELLOW (YELLOW); GLUCOSE, URINE (UA) AUTO NEGATIVE (NEGATIVE); KETONE, URINE AUTO NEGATIVE (NEGATIVE); LEUKOCYTE ESTERASE, URINE AUTO NEGATIVE (NEGATIVE); NITRITE, URINE AUTO NEGATIVE (NEGATIVE); PROTEIN, URINE AUTO NEGATIVE (NEGATIVE); RBC, URINE AUTO 0 /HPF (0-3); SPECIFIC GRAVITY URINE AUTO 1.012 (1.002-1.035); SQUAMOUS EPITHELIAL CELL UR AU 0 /HPF (0-6); UROBILINOGEN, URINE AUTO 0.2 mg/dL (0.0-2.0); WBC, URINE AUTO 1 /HPF (0-3)
[2022-09-12 15:35] LABS: BASO % 0.7 % (0.0-1.0); EOS # 0.1 10^3/uL (0.0-0.5); EOS % 3.2 % (0.0-3.0); HEMOGLOBIN 16.5 g/dl (13.5-17.5); LYMPH # 1.4 10^3/uL (1.5-5.0); LYMPH % 48.4 % (24.0-44.0); MEAN CORPUSCULAR HEMOGLOBIN 33.3 pg (27.0-33.0); MEAN CORPUSCULAR HGB CONC 35.1 g/dl (32.0-36.5); MEAN CORPUSCULAR VOLUME 94.9 fl (80.0-96.0); MONO # 0.3 10^3/uL (0.0-0.8); MONO % 10.2 % (2.0-8.0); NEUTROPHILS # 1.1 10^3/uL (1.5-8.5); NEUTROPHILS % 37.5 % (36.0-66.0); PLATELET COUNT, AUTOMATED 116 10^3/uL (150-450); RED BLOOD COUNT 4.95 10^6/uL (4.30-6.10); WHITE BLOOD COUNT 2.9 10^3/uL (4.0-10.0)
[2022-09-12 16:00] LABS: ALBUMIN 4.3 G/DL (3.2-5.2); ALKALINE PHOSPHATASE 78 U/L (46-116); ALT/SGPT 30 U/L (7.0-40); AST/SGOT 19 U/L (<34); BILIRUBIN,TOTAL 0.5 MG/DL (0.3-1.2); BLOOD UREA NITROGEN 17 MG/DL (9-23); CALCIUM LEVEL 9.5 MG/DL (8.5-10.1); CARBON DIOXIDE LEVEL 28 MMOL/L (20-31); CHLORIDE LEVEL 106 MMOL/L (98-107); GLOMERULAR FILTRATION RATE > 60.0 (>60); GLUCOSE, FASTING 90 MG/DL (60-100); POTASSIUM SERUM 5.2 MMOL/L (3.5-5.1); PTH INTACT 38.6 PG/ML (18.5-88.0); SODIUM LEVEL 139 MMOL/L (136-145); TOTAL PROTEIN 7.4 G/DL (5.7-8.2)
[2022-09-12 16:01] LABS: COMPLEMENT C3 122.3 MG/DL (84.0-160.0); COMPLEMENT C4 31.5 MG/DL (12-36)
[2022-09-12 16:04] LABS: TOTAL 25(OH) VITAMIN D 16.4 NG/ML (20.0-100.0)
[2022-09-12 16:30] LABS: HEPATITIS B SURFACE ANTIGEN NEGATIVE (NEGATIVE)
== END ==
LOC: M PLALAB 12:40
PROVIDERS: ATTEND Family Medicine
DX: M32.9 Systemic lupus erythematosus, unspecified (principal); E55.9 Vitamin D deficiency, unspecified; K70.9 Alcoholic liver disease, unspecified

== ENCOUNTER → 2023-08-21 | Outpatient (REF) | payer OTHER ==
[~2023-08-21] MED LIST changes: +EZET10TA58 PO; -HYDR200T3 PO; +HYDR200T46 PO; -ZETI10TA16 PO
== END ==
LOC: M SFHCPLAZ 10:38
PROVIDERS: ATTEND Family Medicine
DX: M32.9 Systemic lupus erythematosus, unspecified (principal); R35.0 Frequency of micturition; Z53.9 Procedure and treatment not carried out, unspecified reason

== ENCOUNTER → 2023-08-21 | Outpatient (CLI) | payer OTHER ==
[2023-08-21 12:04] LABS: INR 1.06; PROTHROMBIN TIME 13.5 SECONDS (12.5-14.5)
[2023-08-21 12:30] LABS: APPEARANCE, URINE CLEAR (CLEAR); BACTERIA, URINE AUTO NEGATIVE (NEGATIVE); BILIRUBIN, URINE AUTO NEGATIVE (NEGATIVE); BLOOD, URINE BLOOD NEGATIVE (NEGATIVE); COLOR, URINE YELLOW (YELLOW); GLUCOSE, URINE (UA) AUTO NEGATIVE (NEGATIVE); KETONE, URINE AUTO NEGATIVE (NEGATIVE); LEUKOCYTE ESTERASE, URINE AUTO NEGATIVE (NEGATIVE); NITRITE, URINE AUTO NEGATIVE (NEGATIVE); PROTEIN, URINE AUTO NEGATIVE (NEGATIVE); RBC, URINE AUTO 0 /HPF (0-3); SPECIFIC GRAVITY URINE AUTO 1.016 (1.002-1.035); SQUAMOUS EPITHELIAL CELL UR AU 0 /HPF (0-6); UROBILINOGEN, URINE AUTO 0.2 mg/dL (0.0-2.0); WBC, URINE AUTO 1 /HPF (0-3)
[2023-08-21 12:32] LABS: BASO % 0.3 % (0.0-1.0); EOS # 0.2 10^3/uL (0.0-0.5); EOS % 3.3 % (0.0-3.0); HEMATOCRIT 46.3 % (42.0-52.0); HEMOGLOBIN 16.3 g/dl (13.5-17.5); LYMPH # 1.5 10^3/uL (1.5-5.0); LYMPH % 25.6 % (24.0-44.0); MEAN CORPUSCULAR HEMOGLOBIN 33.5 pg (27.0-33.0); MEAN CORPUSCULAR HGB CONC 35.2 g/dl (32.0-36.5); MEAN CORPUSCULAR VOLUME 95.1 fl (80.0-96.0); MONO # 0.4 10^3/uL (0.0-0.8); MONO % 7.4 % (2.0-8.0); NEUTROPHILS # 3.7 10^3/uL (1.5-8.5); NEUTROPHILS % 63.1 % (36.0-66.0); PLATELET COUNT, AUTOMATED 126 10^3/uL (150-450); RED BLOOD COUNT 4.87 10^6/uL (4.30-6.10); WHITE BLOOD COUNT 5.8 10^3/uL (4.0-10.0)
[2023-08-21 12:45] LABS: ERYTHROCYTE SEDIMENTATION RATE 11 mm/hr (0-15)
[2023-08-21 12:53] LABS: C REACTIVE PROTEIN QUANTITATIV < 0.40 MG/DL (<1.0)
[2023-08-21 12:55] LABS: ALBUMIN 4.2 G/DL (3.2-5.2); ALKALINE PHOSPHATASE 68 U/L (46-116); ALT/SGPT 46 U/L (7.0-40); AST/SGOT 20 U/L (<34); BILIRUBIN,TOTAL 0.4 MG/DL (0.3-1.2); BLOOD UREA NITROGEN 21 MG/DL (9-23); CALCIUM LEVEL 9.3 MG/DL (8.5-10.1); CARBON DIOXIDE LEVEL 30 MMOL/L (20-31); CHLORIDE LEVEL 106 MMOL/L (98-107); CREATININE FOR GFR 0.94 MG/DL (0.70-1.30); GLOMERULAR FILTRATION RATE > 60.0 (>60); GLUCOSE, FASTING 91 MG/DL (60-100); POTASSIUM SERUM 4.4 MMOL/L (3.5-5.1); PSA SCREENING 0.37 NG/ML (< 4.00); SODIUM LEVEL 138 MMOL/L (136-145); TOTAL PROTEIN 7.5 G/DL (5.7-8.2)
[2023-08-21 13:35] LABS: HEPATITIS C VIRUS ABY INDEX 0.05 INDEX (<0.8)
== END ==
LOC: M PLALAB 10:47
PROVIDERS: ATTEND Family Medicine
DX: M32.9 Systemic lupus erythematosus, unspecified (principal); R35.0 Frequency of micturition

== ENCOUNTER → 2023-09-29 | Outpatient (REF) | payer OTHER | LOC: M SFHCPLAZ 16:55 | PROVIDERS: ATTEND Family Medicine | DX: M32.9 Systemic lupus erythematosus, unspecified (principal); R73.01 Impaired fasting glucose; D72.819 Decreased white blood cell count, unspecified ==

== ENCOUNTER → 2023-10-14 | Outpatient (CLI) | payer OTHER | LOC: M RAD 13:36 | PROVIDERS: ATTEND Family Medicine | DX: R35.0 Frequency of micturition (principal); R39.198 Other difficulties with micturition ==

== ENCOUNTER → 2023-12-01 | Outpatient (CLI) | payer OTHER ==
[2023-12-01 17:53] LABS: HEMATOCRIT 46.7 % (42.0-52.0)
[2023-12-01 17:57] LABS: BASO % 0.5 % (0.0-1.0); EOS # 0.2 10^3/uL (0.0-0.5); EOS % 6.2 % (0.0-3.0); HEMOGLOBIN 16.6 g/dl (13.5-17.5); LYMPH # 1.9 10^3/uL (1.5-5.0); LYMPH % 51.2 % (24.0-44.0); MEAN CORPUSCULAR HEMOGLOBIN 33.7 pg (27.0-33.0); MEAN CORPUSCULAR HGB CONC 35.3 g/dl (32.0-36.5); MEAN CORPUSCULAR VOLUME 95.3 fl (80.0-96.0); MONO # 0.4 10^3/uL (0.0-0.8); MONO % 9.7 % (2.0-8.0); NEUTROPHILS # 1.2 10^3/uL (1.5-8.5); NEUTROPHILS % 32.4 % (36.0-66.0); PLATELET COUNT, AUTOMATED 128 10^3/uL (150-450); RED BLOOD COUNT 4.93 10^6/uL (4.30-6.10); WHITE BLOOD COUNT 3.7 10^3/uL (4.0-10.0)
[2023-12-01 18:05] LABS: C REACTIVE PROTEIN QUANTITATIV < 0.40 MG/DL (<1.0)
[2023-12-01 18:06] LABS: COMPLEMENT C3 124.9 MG/DL (84.0-160.0); COMPLEMENT C4 34.6 MG/DL (12-36)
[2023-12-01 18:07] LABS: ALBUMIN 4.4 G/DL (3.2-5.2); ALKALINE PHOSPHATASE 82 U/L (46-116); ALT/SGPT 33 U/L (7.0-40); AST/SGOT 14 U/L (<34); BILIRUBIN,TOTAL 0.5 MG/DL (0.3-1.2); BLOOD UREA NITROGEN 17 MG/DL (9-23); CALCIUM LEVEL 9.4 MG/DL (8.5-10.1); CARBON DIOXIDE LEVEL 28 MMOL/L (20-31); CHLORIDE LEVEL 105 MMOL/L (98-107); CHOLESTEROL LEVEL 207 MG/DL (<200); CREATININE FOR GFR 1.02 MG/DL (0.70-1.30); FREE T4 1.25 NG/DL (0.89-1.76); GLOMERULAR FILTRATION RATE > 60.0 (>60); GLUCOSE, FASTING 86 MG/DL (60-100); HDL CHOLESTEROL 42.2 MG/DL (>40); LDL CHOLESTEROL 146.8 MG/DL (<100); NON-HDL-C 164.8 MG/DL; POTASSIUM SERUM 4.7 MMOL/L (3.5-5.1); SODIUM LEVEL 137 MMOL/L (136-145); THYROID STIMULATING HORMONE 2.643 uIU/ML (0.55-4.78); TOTAL PROTEIN 7.3 G/DL (5.7-8.2); TRIGLYCERIDES LEVEL 90 MG/DL (<150)
[2023-12-01 18:08] LABS: VITAMIN B12 LEVEL 475 PG/ML (211-911)
[2023-12-01 18:15] LABS: ERYTHROCYTE SEDIMENTATION RATE 19 mm/hr (0-15)
[2023-12-01 18:16] LABS: HEMOGLOBIN A1c 4.9 % (4.0-6.0)
== END ==
LOC: M PLALAB 16:05
PROVIDERS: ATTEND Family Medicine
DX: M32.9 Systemic lupus erythematosus, unspecified (principal); R73.01 Impaired fasting glucose; D72.819 Decreased white blood cell count, unspecified; K70.9 Alcoholic liver disease, unspecified

== ENCOUNTER → 2023-12-01 | Outpatient (REF) | payer OTHER | LOC: M SFHCPLAZ 16:05 | PROVIDERS: ATTEND Family Medicine | DX: M32.9 Systemic lupus erythematosus, unspecified (principal); R73.01 Impaired fasting glucose; D72.819 Decreased white blood cell count, unspecified ==

== ENCOUNTER → 2024-01-12 | Outpatient (REF) | payer OTHER | LOC: M SFHCPLAZ 17:46 | PROVIDERS: ATTEND Family Medicine | DX: M32.9 Systemic lupus erythematosus, unspecified (principal) ==

== ENCOUNTER → 2025-02-20 | Outpatient (CLI) | payer BC, OTHER ==
[~2025-02-20] MED LIST changes: -ADV500INH INH; +ADVA1AER10 INH; +KETO120S5 TOP; -KETO2SHA8 TOP
[2025-02-20 14:04] LABS: BASO # 0.0 10^3/uL (0.0-0.2); BASO % 0.5 % (0.0-1.0); EOS # 0.2 10^3/uL (0.0-0.5); EOS % 4.0 % (0.0-3.0); LYMPH # 1.5 10^3/uL (1.5-5.0); LYMPH % 25.6 % (24.0-44.0); MONO # 0.7 10^3/uL (0.0-0.8); MONO % 11.7 % (2.0-8.0); NEUTROPHILS # 3.4 10^3/uL (1.5-8.5); NEUTROPHILS % 58.0 % (36.0-66.0); PLATELET COUNT, AUTOMATED 146 10^3/uL (150-450)
[2025-02-20 14:12] LABS: ERYTHROCYTE SEDIMENTATION RATE 25 mm/hr (0-15)
[2025-02-20 14:27] LABS: TOTAL PROTEIN,RANDOM URINE 19.6 MG/DL (0.0-14.0)
[2025-02-20 14:28] LABS: ESTIMATED AVERAGE GLUCOSE 100.0 MG/DL (60-110)
[2025-02-20 14:31] LABS: C REACTIVE PROTEIN QUANTITATIV 0.87 MG/DL (<1.0); COMPLEMENT C4 38.7 MG/DL (12-36)
[2025-02-20 14:32] LABS: ALT/SGPT 54 U/L (7.0-40); AST/SGOT 24 U/L (<34); CALCIUM LEVEL 8.9 MG/DL (8.5-10.1); CARBON DIOXIDE LEVEL 26 MMOL/L (20-31); CHLORIDE LEVEL 107 MMOL/L (98-107); CREATININE FOR GFR 1.08 MG/DL (0.70-1.30); GLOMERULAR FILTRATION RATE > 90.0 (>60); POTASSIUM SERUM 5.2 MMOL/L (3.5-5.1); PTH INTACT 40.7 PG/ML (18.5-88.0); SODIUM LEVEL 138 MMOL/L (136-145)
[2025-02-20 14:34] LABS: TOTAL 25(OH) VITAMIN D 10.4 NG/ML (20.0-100.0)
== END ==
LOC: M PLALAB 10:21
PROVIDERS: ATTEND Family Medicine
DX: M32.9 Systemic lupus erythematosus, unspecified (principal)

== ENCOUNTER → 2025-02-22 | Outpatient (CLI) | payer BC ==
[~2025-02-22] MED LIST changes: +AUGM500T34 PO; +ISOVUE-370 76% 100 ML VIAL As Ordered ONE
== END ==
LOC: M RAD 09:48
PROVIDERS: ATTEND Family Medicine
DX: L02.31 Cutaneous abscess of buttock (principal)
CPT/HCPCS: 72193; Q9967

== ENCOUNTER → 2025-02-27 | Outpatient (CLI) | payer BC ==
[~2025-02-27] MED LIST changes: -ISOVUE-370 76% 100 ML VIAL As Ordered ONE
[2025-02-27 14:14] LABS: BASO # 0.0 10^3/uL (0.0-0.2); BASO % 0.3 % (0.0-1.0); EOS # 0.4 10^3/uL (0.0-0.5); EOS % 6.0 % (0.0-3.0); LYMPH # 1.6 10^3/uL (1.5-5.0); LYMPH % 25.3 % (24.0-44.0); MONO # 0.6 10^3/uL (0.0-0.8); MONO % 9.2 % (2.0-8.0); NEUTROPHILS # 3.7 10^3/uL (1.5-8.5); NEUTROPHILS % 59.0 % (36.0-66.0); PLATELET COUNT, AUTOMATED 186 10^3/uL (150-450)
[2025-02-27 14:26] LABS: ERYTHROCYTE SEDIMENTATION RATE 37 mm/hr (0-15)
[2025-02-27 14:27] LABS: ALT/SGPT 40 U/L (7.0-40); AST/SGOT 25 U/L (<34); C REACTIVE PROTEIN QUANTITATIV 0.91 MG/DL (<1.0); CALCIUM LEVEL 9.0 MG/DL (8.5-10.1); CARBON DIOXIDE LEVEL 28 MMOL/L (20-31); CHLORIDE LEVEL 109 MMOL/L (98-107); COMPLEMENT C4 41.2 MG/DL (12-36); CREATININE FOR GFR 1.02 MG/DL (0.70-1.30); GLOMERULAR FILTRATION RATE > 90.0 (>60); POTASSIUM SERUM 4.6 MMOL/L (3.5-5.1); PTH INTACT 23.0 PG/ML (18.5-88.0); SODIUM LEVEL 140 MMOL/L (136-145)
[2025-02-27 14:29] LABS: TOTAL 25(OH) VITAMIN D 22.7 NG/ML (20.0-100.0)
[2025-02-27 14:38] LABS: TOTAL PROTEIN,RANDOM URINE 18.5 MG/DL (0.0-14.0)
[2025-02-27 14:55] LABS: ESTIMATED AVERAGE GLUCOSE 100.0 MG/DL (60-110)
== END ==
LOC: M PLALAB 09:31
PROVIDERS: ATTEND Family Medicine
DX: M32.9 Systemic lupus erythematosus, unspecified (principal); E55.9 Vitamin D deficiency, unspecified; R73.01 Impaired fasting glucose; K76.0 Fatty (change of) liver, not elsewhere classified

== ENCOUNTER → 2025-04-28 | Outpatient (CLI) | payer BC ==
[2025-04-28 11:50] LABS: BASO # 0.0 10^3/uL (0.0-0.2); BASO % 0.5 % (0.0-1.0); EOS # 0.4 10^3/uL (0.0-0.5); EOS % 5.8 % (0.0-3.0); LYMPH # 2.1 10^3/uL (1.5-5.0); LYMPH % 33.3 % (24.0-44.0); MONO # 0.7 10^3/uL (0.0-0.8); MONO % 10.5 % (2.0-8.0); NEUTROPHILS # 3.1 10^3/uL (1.5-8.5); NEUTROPHILS % 49.7 % (36.0-66.0); PLATELET COUNT, AUTOMATED 159 10^3/uL (150-450)
[2025-04-28 12:06] LABS: TOTAL PROTEIN,RANDOM URINE 20.0 MG/DL (0.0-14.0)
[2025-04-28 12:14] LABS: C REACTIVE PROTEIN QUANTITATIV < 0.50 MG/DL (<1.0); COMPLEMENT C4 39.4 MG/DL (12-36); CPK CREATINE PHOSPHOKINASE 65 U/L (46-171)
[2025-04-28 12:15] LABS: ALT/SGPT 67 U/L (7.0-40); AST/SGOT 30 U/L (<34); CALCIUM LEVEL 9.5 MG/DL (8.5-10.1); CARBON DIOXIDE LEVEL 29 MMOL/L (20-31); CHLORIDE LEVEL 108 MMOL/L (98-107); CHOLESTEROL LEVEL 125 MG/DL (<200); CHOLESTEROL RISK RATIO 3.50 (<5); CREATININE FOR GFR 0.95 MG/DL (0.70-1.30); GLOMERULAR FILTRATION RATE > 90.0 (>60); LDL CHOLESTEROL 77.7 MG/DL (<100); NON-HDL-C 89.3 MG/DL; POTASSIUM SERUM 4.5 MMOL/L (3.5-5.1); PTH INTACT 26.8 PG/ML (18.5-88.0); SODIUM LEVEL 142 MMOL/L (136-145); TRIGLYCERIDES LEVEL 58 MG/DL (<150)
[2025-04-28 12:16] LABS: TOTAL 25(OH) VITAMIN D 33.2 NG/ML (20.0-100.0)
[2025-04-28 12:33] LABS: ESTIMATED AVERAGE GLUCOSE 97.0 MG/DL (60-110)
== END ==
LOC: M PLALAB 08:34
PROVIDERS: ATTEND Family Medicine
DX: M32.9 Systemic lupus erythematosus, unspecified (principal); E78.5 Hyperlipidemia, unspecified